=== PATIENT | female | born 1960 | race Caucasian/White ===

== ENCOUNTER 2020-10-14 02:22 | Emergency (ER) | payer OTHER, SELFPAY ==
[2020-10-14 02:28] VITALS: BP 118/78; BP 127/62; PULSE 73; PULSE 75; RESP 20; TEMP 37.1; O2SAT 96; O2SAT 97; BMI 48.5
--- NOTE | 2020-10-14 02:42 | XR_ITS ---
EXAMINATION: XR CHEST CLINICAL INFORMATION: Chest pain COMPARISON: 10/08/2015 TECHNIQUE: Frontal view of the chest was obtained. FINDINGS: The lungs are clear with no focal consolidation. No evidence of pneumothorax, pulmonary edema, or pleural effusions. The cardiomediastinal silhouette is unremarkable. No acute osseous findings. XR/XR chest 1V IMPRESSION: No acute cardiopulmonary findings.
--- NOTE | 2020-10-14 02:43 | ECG_ITS ---
Test Reason : CHEST PAIN Blood Pressure : / mmHG Vent. Rate : 067 BPM Atrial Rate : 067 BPM P-R Int : 200 ms QRS Dur : 088 ms QT Int : 408 ms P-R-T Axes : 074 019 048 degrees QTc Int : 431 ms Normal sinus rhythm Normal ECG When compared with ECG of 14-OCT-2020 02:31, Nonspecific ST abnormality has improved Referred By: Ivonne Lino Electronically Signed By:VERITO KEENE MD
--- NOTE | 2020-10-14 03:31 | ED.CHESTPAIN ---
HPI - Chest Pain General Chief Complaint: Chest Pain Stated Complaint: CHEST PAIN Time Seen by Provider: 10/14/20 02:42 Source: patient Mode of arrival: EMS History of Present Illness HPI narrative: This is a 60-year-old female who presents via EMS for onset of substernal chest pain, non-radiating that started up shortly after 1:00 a.m. this morning and was associated with lightheadedness as well as nausea but denies any shortness of breath, headache, diaphoresis. She states the pain lasted approximately 10 minutes and was not exacerbated by deep inspiration or movement or position change. Patient denies any recent travel, calf swelling/pain, recent smoking history, dyspnea on exertion, orthopnea, or increased bilateral lower leg edema. Patient is completely asymptomatic at this time. Related Data Home Medications Medication Instructions Recorded Confirmed alprazolam 1 tab PO DAILY PRN 10/14/20 10/14/20 dulaglutide [Trulicity] 0.75 mg SUBCUT DAILY 10/14/20 10/14/20 glipizide 1 tab PO DAILY 10/14/20 10/14/20 insulin degludec [Tresiba 100 unit SUBCUT DAILY 10/14/20 10/14/20 FlexTouch U-100] metformin 500 mg PO DAILY 10/14/20 10/14/20 oxybutynin chloride 1 tab PO DAILY 10/14/20 10/14/20 potassium chloride 10 meq PO DAILY 10/14/20 10/14/20 sacubitril-valsartan [Entresto] 1 tab PO BID 10/14/20 10/14/20 Allergies Allergy/AdvReac Type Severity Reaction Status Date / Time No Known Allergies Allergy Verified 10/14/20 02:33 [No Known Allergies*] Review of Systems Review of Systems: Pertinent positives and negatives as stated in HPI and 10 point review of systems is otherwise negative. [facility] Past Medical History Source: nursing notes reviewed Medical History CHF (congestive heart failure) Diabetes Hypothyroid Social History Social History Smoking Status: Former smoker Use of substances other than those prescribed or required for medical reasons: No Advance Directives: No Advance Directives Information Provided: No Physical Exam Vital Signs: Vital Signs: Last Vital Signs Temp 98.7 F 10/14/20 02:28 Pulse 75 10/14/20 03:41 Resp 15 10/14/20 03:41 BP 127/67 10/14/20 03:41 Pulse Ox 95 10/14/20 03:41 Body Mass Index 48.5 VITAL SIGNS: Reviewed. GENERAL: Well developed, well nourished, in no acute distress. HEAD: Normocephalic/atraumatic, EYES: PERRLA, EOMI EARS: Ext canals without abnormality NOSE: Nares patent bilateral OROPHARYNX: no oral lesions noted, posterior pharynx clear NECK: Supple, no adenopathy LUNGS: Normal breath sounds. No adventitious sounds or accessory muscle use. SpO2<95> CARDIOVASCULAR: Regular rate and rhythm without noted murmurs, no JVD or lower extremity edema. ABDOMEN: Obese, Soft, non-tender, non-distended with bowel sounds. MUSCULOSKELETAL: No tenderness, deformities, or effusions noted on gross inspection. EXTREMITIES: No cyanosis, clubbing or edema. SKIN: Inspection of the skin reveals no rashes NEUROLOGIC: Alert and oriented x 4. Strength and sensation to light touch were grossly intact x 4. Course Course Course Narrative: This is a 60-year-old female with history and clinical presentation suggestive of possible GERD/costochondritis, but will rule out cardiopulmonary etiologies or less likely pancreatitis. All results reviewed and there are no acute findings, however troponin is mildly elevated at 7.6 without noted ischemic changes on EKG. Will trend with 2nd troponin. Signed out to Dr Denny: f/u 2nd Troponin and likely discharge MDM - Chest Pain Lab Data Result diagrams: 10/14/20 03:55 10/14/20 05:07 Labs: Lab Results 10/14/20 10/14/20 10/14/20 Range/Units 03:55 03:55 05:07 WBC 9.4 (4.8-10.8) X10*3/uL RBC 4.52 (4.20-5.50) X10*6/uL Hgb 11.9 L (12.0-16.0) g/dl Hct 38.1 (37-47) % MCV 84.3 (80-98) fL MCH 26.3 L (27.0-33.0) pg MCHC 31.2 (31.0-35.0) g/dl RDW 14.0 (11.0-16.0) % Plt Count 149 L (160-400) X10*3/uL MPV 9.4 (9.4-12.3) fL Immature Gran % (Auto) 0.2 (0.0-0.4) % Neut % (Auto) 73.0 (45-73) % Lymph % (Auto) 19.3 L (20-40) % [place] % (Auto) 6.3 (2-11) % Eos % (Auto) 0.9 (0-4) % Baso % (Auto) 0.3 (0-2) % Lymph # (Auto) 1.8 (1.2-4.9) X10*3/uL [place] # (Auto) 0.6 (0.1-1.2) X10*3/uL Eos # (Auto) 0.1 (0.0-0.4) X10*3/uL Baso # (Auto) 0.0 (0.0-0.2) X10*3/uL Abs Immat Gran (auto) 0.02 (0.00-0.03) X10*3/uL Absolute Neuts (auto) 6.9 (2.0-8.3) X10*3/uL Absolute Nucleated RBC 0.000 (0.0-0.012) X10*3/uL Nucleated RBC % (auto) 0.0 (0.0-0.2) /100WBC Sodium 140 (135-145) mmol/L Potassium 4.7 (3.3-5.1) mmol/L Chloride 104 (96-108) mmol/L Carbon Dioxide 26 (22-29) mmol/L Anion Gap 15 (12-20) BUN 24 H (9-16) mg/dL Creatinine 0.81 (0.5-1.4) mg/dL Estim Creat Clear Calc 105.9 Estimated GFR > 60 Random Glucose 97 (60-115) mg/dL Calcium 8.9 (8.4-10.2) mg/dL Total Bilirubin 0.2 (0.0-1.0) mg/dL AST 18 (5-31) U/L ALT 14 (0-31) U/L Alkaline Phosphatase 80 (39-117) U/L Troponin I High Sens 7.6 (<3.5-17.0) ng/L Total Protein 6.9 (6.5-8.0) g/dL Albumin 4.1 (3.5-5.0) g/dL ECG Data ECG #1: Attestation: I personally reviewed and interpreted this ECG as follows: Prior ECG tracings: available for review (10/09/2015 no acute changes on comparison) Interpretation: Normal sinus rhythm, HR-67, no evidence of acute ischemia, MD/QRS/QTC are within normal limits. Discharge Plan Discharge Clinical Impression: Atypical chest pain Patient Disposition: Home, Self-Care Instructions: Chest Pain (ED), Chest Wall Pain (ED) Additional Instructions: 1. Resume all home medications as prescribed. 2. Recommend following up with primary care provider for re-evaluation and outpatient management, or further investigations as indicated. Please do not hesitate to return to the emergency department should you develop any acute worsening of your symptoms. Prescriptions: No Action metformin 500 mg tablet 500 mg PO DAILY RF: 0 oxybutynin chloride 15 mg tablet extended release 24hr 1 tab PO DAILY RF: 0 potassium chloride 10 mEq tablet extended release 10 meq PO DAILY RF: 0 alprazolam 0.25 mg tablet 1 tab PO DAILY PRN (Reason: Sleep) RF: 0 glipizide 5 mg tablet 1 tab PO DAILY RF: 0 Tresiba FlexTouch U-100 100 unit/mL (3 mL) insulin pen 100 unit subcut DAILY RF: 0 Trulicity 0.75 mg/0.5 mL pen injector 0.75 mg subcut DAILY RF: 0 Entresto 49-51 mg tablet 1 tab PO BID RF: 0 Referrals: Corrie Winston MD [Primary Care Provider] - 2 days (Re-evaluation and outpatient management of atypical chest pain with negative cardiac workup.)
[2020-10-14 03:41] VITALS: BP 127/67; PULSE 75; RESP 15; O2SAT 95
[2020-10-14 03:59] LABS: MANUAL DIFF FLAG NO
[2020-10-14 04:00] LABS: Basophils Percent Auto 0.3 % (0-2); Eosinophils Absolute Auto 0.1 X10*3/uL (0.0-0.4); Eosinophils Percent Auto 0.9 % (0-4); Hematocrit 38.1 % (37-47); Hemoglobin 11.9 g/dl (12.0-16.0); Imm Gran Abs Auto 0.02 X10*3/uL (0.00-0.03); Imm Gran Pct Auto 0.2 % (0.0-0.4); Lymphocytes Absolute Auto 1.8 X10*3/uL (1.2-4.9); Lymphocytes Percent Auto 19.3 % (20-40); Mean Corpuscular HGB Conc 31.2 g/dl (31.0-35.0); Mean Corpuscular Hemoglobin 26.3 pg (27.0-33.0); Mean Corpuscular Volume 84.3 fL (80-98); Mean Platelet Volume 9.4 fL (9.4-12.3); Monocytes Absolute Auto 0.6 X10*3/uL (0.1-1.2); Monocytes Percent Auto 6.3 % (2-11); Neutrophils Absolute Auto 6.9 X10*3/uL (2.0-8.3); Platelet Count 149 X10*3/uL (160-400); Red Blood Count 4.52 X10*6/uL (4.20-5.50); White Blood Count 9.4 X10*3/uL (4.8-10.8)
[2020-10-14 04:33] LABS: Troponin-I High Sensitivity 7.6 ng/L (<3.5-17.0)
[2020-10-14 06:06] LABS: Alanine Aminotransferase 14 U/L (0-31); Albumin Level 4.1 g/dL (3.5-5.0); Alkaline Phosphatase 80 U/L (39-117); Anion Gap 15 (12-20); Aspartate Amino Transferase 18 U/L (5-31); Bilirubin Total 0.2 mg/dL (0.0-1.0); Blood Urea Nitrogen 24 mg/dL (9-16); Calcium 8.9 mg/dL (8.4-10.2); Carbon Dioxide 26 mmol/L (22-29); Chloride 104 mmol/L (96-108); Creatinine Clr Calc Pharmacy 105.9; Estimated Glomerular Filt Rate > 60; Glucose Random 97 mg/dL (60-115); Potassium 4.7 mmol/L (3.3-5.1); Sodium 140 mmol/L (135-145); Total Protein 6.9 g/dL (6.5-8.0)
[2020-10-14 06:51] VITALS: BP 129/70; PULSE 77; RESP 18; O2SAT 96
[2020-10-14 08:37] LABS: Troponin-I High Sensitivity 5.3 ng/L (<3.5-17.0)
== END 2020-10-14 09:57 | disposition home or self-care (01) ==
PROVIDERS: Emergency Provider Student in an Organized Health Care Education/Training Program; PCP Internal Medicine
DX: R07.89 Other chest pain (principal); E11.9 Type 2 diabetes mellitus without complications; I50.9 Heart failure, unspecified; Z79.4 Long term (current) use of insulin; Z79.899 Other long term (current) drug therapy; Z87.891 Personal history of nicotine dependence
CPT/HCPCS: 36415; 71045; 80053; 84484; 85025; 93005; 99283; 99284

== ENCOUNTER 2021-02-15 22:13 | Emergency (ER) | payer OTHER, SELFPAY ==
--- NOTE | ~2021-02-15 | XR_ITS ---
EXAMINATION: XR KNEE, LEFT CLINICAL INFORMATION: Fall COMPARISON: None TECHNIQUE: Four views of the left knee. FINDINGS: Osseous alignment is anatomic. There is severe joint space narrowing of the lateral compartment and osteophytosis. Mild narrowing of the medial and patellofemoral compartments. No acute fracture is seen. Small effusion is present. There are scattered calcific density in the soft tissues of the lower leg, predominantly medially. XR/XR knee LT 4V IMPRESSION: No acute findings. Chronic appearing/degenerative changes as described above.
[2021-02-15 22:22] VITALS: BP 150/100; PULSE 75; O2SAT 97
[2021-02-15 22:37] VITALS: BP 145/56; PULSE 95; RESP 18; TEMP 37.1; O2SAT 96; BMI 48.5
--- NOTE | 2021-02-16 00:30 | ED.LOWEXIN ---
HPI - Extremity Injury (Lower) General Chief Complaint: Extremity Injury, Lower Stated Complaint: knee pain Time Seen by Provider: 02/16/21 00:19 Source: patient Mode of arrival: wheelchair Limitations: no limitations History of Present Illness HPI Narrative: Patient comes emergency room complaining of left-sided knee pain. Patient states that at home she has a toothless dog that drools quite a bit, which left a puddle of saliva on the ground, patient slipped, landed on her buttocks but her left leg bent backwards, causing it to hurt her left knee. Patient did not hit her head, no LOC, not on bloodthinners. Related Data Home Medications Medication Instructions Recorded Confirmed alprazolam 1 tab PO DAILY PRN 10/14/20 10/14/20 dulaglutide [Trulicity] 0.75 mg SUBCUT DAILY 10/14/20 10/14/20 glipizide 1 tab PO DAILY 10/14/20 10/14/20 insulin degludec [Tresiba 100 unit SUBCUT DAILY 10/14/20 10/14/20 FlexTouch U-100] metformin 500 mg PO DAILY 10/14/20 10/14/20 oxybutynin chloride 1 tab PO DAILY 10/14/20 10/14/20 potassium chloride 10 meq PO DAILY 10/14/20 10/14/20 sacubitril-valsartan [Entresto] 1 tab PO BID 10/14/20 10/14/20 Allergies Allergy/AdvReac Type Severity Reaction Status Date / Time No Known Allergies Allergy Verified 02/15/21 22:37 [No Known Allergies*] Review of Systems Review of Systems: Constitutional : No Weight loss, No Fever, No Chills, No Night Sweats, No Fatigue, No Malaise ENT/Mouth : No Hearing loss, No Ear Pain, No Nasal Congestion, No Sinus Pain, No Hoarseness, No sore throat, No Rhinorrhea, No Swallowing Difficulty Eyes: No Eye Pain, No Swelling, No Redness, No Foreign Body, No Discharge, No Vision Changes Cardiovascular : No Chest Pain, No SOB, No Dyspnea on Exertion, No Orthopnea, No Edema, No Palpitations Respiratory : No Cough, No Sputum, No Wheezing, No Smoke Exposure, No Dyspnea Gastrointestinal : No Nausea, No Vomiting, No Diarrhea, No Constipation, No abdominal Pain, No Hematochezia, No Melena Genitourinary : no irregular bleeding, No Dysuria, No Urinary Frequency, No Hematuria, No Urinary Incontinence, No Urgency, No Flank Pain, No Urinary Flow Changes, No Hesitancy Musculoskeletal : Complaining of severe left knee pain with any movement, mild pain in buttocks, No Myalgias, No Joint Swelling Skin : No Skin Lesions, No rash Neuro : No Weakness, No Numbness, No Paresthesias, No Loss of Consciousness, No Dizziness, No Headache Psych : No Anxiety/Panic, No Depression, No SI/HI/AH/VH, No Social Issues, Heme/Lymph: No Bruising, No Bleeding,No Lymphadenopathy Endocrine : No Polyuria, No Polydipsia, No Temperature Intolerance PENDING SALE TO [facility] Past Medical History Medical History CHF (congestive heart failure) Diabetes Hypothyroid Social History Social History Advance Directives: No Advance Directives Information Provided: No Physical Exam Vital Signs: Vital Signs: Last Vital Signs Temp 98.7 F 02/15/21 22:37 Pulse 95 02/15/21 22:37 Resp 18 02/15/21 22:37 BP 145/56 H 02/15/21 22:37 Pulse Ox 96 02/15/21 22:37 Body Mass Index 48.5 Appearance: Alert. Oriented X3. No acute distress. Eyes: Pupils equal, round and reactive to light. ENT: Pharynx normal. Neck: Normal inspection. Neck supple. No lymph nodes noted. No crepitus CVS: Normal heart rate and rhythm. Pulses normal. Normal S1 and S2 Respiratory: No respiratory distress. Breath sounds normal. No Wheezing. No rales Abdomen: Soft and nontender. No rigidity. No distention. good BS x4 Skin: Skin warm and dry. Normal skin color. Normal skin turgor. Extremities: Bilateral +3 pitting edema, patient unable to move her left leg due to severe knee pain, patient does not seem to have significant deformity, knee is mildly swollen on the left side, tender to touch, not erythematous, seems that she does have a small effusion Neuro: Oriented X 3. No motor deficit. No sensory deficit. Moving all extermities. No slurred speech. Course Course Course Narrative: Patient required for people to assist her to go to the bathroom. Patient has a very difficult time walking even with a walker and with the 2 people assist. Patient will remain in the emergency room, be evaluated by Case Management and Physical therapy in the morning. Physician observation was started at 02:00, blood pressure 145/56, other vitals stable. Patient waiting for case management and PT. Sign-out given to Dr. Lino MDM - Extremity Injury (Lower) Imaging Data Knee x-ray: Radiologist's impression: Osseous alignment is anatomic. There is severe joint space narrowing of the lateral compartment and osteophytosis. Mild narrowing of the medial and patellofemoral compartments. No acute fracture is seen. Small effusion is present. There are scattered calcific density in the soft tissues of the lower leg, predominantly medially. XR/XR knee LT 4V IMPRESSION: No acute findings. Chronic appearing/degenerative changes as described above. Discharge Plan Discharge Prescriptions: No Action metformin 500 mg tablet 500 mg PO DAILY RF: 0 oxybutynin chloride 15 mg tablet extended release 24hr 1 tab PO DAILY RF: 0 potassium chloride 10 mEq tablet extended release 10 meq PO DAILY RF: 0 alprazolam 0.25 mg tablet 1 tab PO DAILY PRN (Reason: Sleep) RF: 0 glipizide 5 mg tablet 1 tab PO DAILY RF: 0 Tresiba FlexTouch U-100 100 unit/mL (3 mL) insulin pen 100 unit subcut DAILY RF: 0 Trulicity 0.75 mg/0.5 mL pen injector 0.75 mg subcut DAILY RF: 0 Entresto 49-51 mg tablet 1 tab PO BID RF: 0
[2021-02-16] MEDS: traMADoL HCL 50 MG TABLET PO ×2 (00:49→09:33)
[2021-02-16 02:00] VITALS: BP 148/83; PULSE 85; RESP 18; TEMP 36.8; O2SAT 97
[2021-02-16 06:45] LABS: COVID-19 Test Negative (Negative); IDNOW Serial# 9DD0AD1C
[2021-02-16 06:59] VITALS: RESP 16
[2021-02-16 07:27] VITALS: BP 148/83; PULSE 85; O2SAT 97
[2021-02-16 10:00] VITALS: RESP 18
--- NOTE | 2021-02-16 10:51 | PC.NURSE ---
pt up to comode with minimal assistance
--- NOTE | 2021-02-16 11:20 | MHC.CM.ED ---
Received case management consult overnight from Dr Horton. Patient came to the ER due to knee pain. Found to have knee effusion. Physical therapy eval completed. Acute rehab is recommended. OT eval will be needed and has been ordered by Cheikh HENNING. Met with patient in regards to discharge planning. Patient lives with her , daughter and son in law, ambulates independently and had no services prior to coming to the ER. PCP verified. Patient denies having a HCP. Information provided. Patient not interested in completing one at this time. Acute rehab choices provided. Patient requesting referral to [facility]. Referral made via [employer]. [facility] is waiting for OT eval prior to obtaining insurance auth. Continue to monitor for d/c needs.
--- NOTE | 2021-02-16 13:18 | MHC.CM.ED ---
OT eval completed. Sent to [facility]. [facility] is in the process of obtaining insurance auth. Continue to monitor for d/c needs.
--- NOTE | 2021-02-16 13:40 | MHC.CM.ED ---
Received telephone call from Teresita at [facility]. Teresita is requesting additional clinical information. Additional clinical information provided via fax. Continue to monitor for d/c needs.
== END 2021-02-16 18:52 | disposition other institution (70) ==
PROVIDERS: Emergency Provider Emergency Medicine; PCP Internal Medicine
DX: M25.462 Effusion, left knee (principal); M17.12 Unilateral primary osteoarthritis, left knee; M25.562 Pain in left knee; I50.9 Heart failure, unspecified; E11.9 Type 2 diabetes mellitus without complications; Z79.4 Long term (current) use of insulin; Z79.899 Other long term (current) drug therapy
CPT/HCPCS: 36415; 73564; 87635; 97162; 97166; 99284; 99285

== ENCOUNTER 2022-02-20 12:14 | Outpatient (REF) | payer OTHER, SELFPAY ==
--- NOTE | ~2022-02-20 | XR_ITS ---
EXAMINATION: 1. RADIOGRAPHS RIGHT HAND 2. RADIOGRAPHS LEFT HAND CLINICAL INFORMATION: Bilateral hand pain. History of arthritis. COMPARISON: None TECHNIQUE: 3 views of each hand were obtained. FINDINGS: Right hand: Visualized portion of the distal radius and ulna demonstrate no fracture. Carpal rows are well aligned. No carpal, metacarpal or phalangeal fracture. Mild degenerative changes of scattered IP joints. No focal soft tissue swelling. No gross erosive changes. No radiopaque foreign body. Left hand: Visualized portion of the distal radius and ulna demonstrate no fracture. Carpal rows are maintained. No carpal bone fracture. No metacarpal or phalangeal fracture. Small enthesophyte off the lateral aspect of the distal fifth metacarpal. There are mild degenerative changes of the first MCP and scattered IP joints. No gross erosive changes. No focal soft tissue swelling. No radiopaque foreign body. XR/XR hand RT min 3V IMPRESSION: Mild degenerative changes of both hands without fracture.
--- NOTE | ~2022-02-20 | XR_ITS ---
EXAMINATION: 1. RADIOGRAPHS RIGHT HAND 2. RADIOGRAPHS LEFT HAND CLINICAL INFORMATION: Bilateral hand pain. History of arthritis. COMPARISON: None TECHNIQUE: 3 views of each hand were obtained. FINDINGS: Right hand: Visualized portion of the distal radius and ulna demonstrate no fracture. Carpal rows are well aligned. No carpal, metacarpal or phalangeal fracture. Mild degenerative changes of scattered IP joints. No focal soft tissue swelling. No gross erosive changes. No radiopaque foreign body. Left hand: Visualized portion of the distal radius and ulna demonstrate no fracture. Carpal rows are maintained. No carpal bone fracture. No metacarpal or phalangeal fracture. Small enthesophyte off the lateral aspect of the distal fifth metacarpal. There are mild degenerative changes of the first MCP and scattered IP joints. No gross erosive changes. No focal soft tissue swelling. No radiopaque foreign body. XR/XR hand LT min 3V IMPRESSION: Mild degenerative changes of both hands without fracture.
[2022-02-20 12:41] LABS: MANUAL DIFF FLAG NO
[2022-02-20 13:17] LABS: Basophils Percent Auto 0.5 % (0-2); Eosinophils Absolute Auto 0.1 X10*3/uL (0.0-0.4); Eosinophils Percent Auto 1.9 % (0-4); Hematocrit 35.6 % (37.0-47.0); Imm Gran Abs Auto 0.03 X10*3/uL (0.00-0.03); Imm Gran Pct Auto 0.5 % (0.0-0.4); Lymphocytes Absolute Auto 1.6 X10*3/uL (1.2-4.9); Lymphocytes Percent Auto 28.4 % (20-40); Mean Corpuscular HGB Conc 30.9 g/dl (31.0-35.0); Mean Corpuscular Volume 84.2 fL (80.0-98.0); Mean Platelet Volume 10.5 fL (9.4-12.3); Monocytes Absolute Auto 0.4 X10*3/uL (0.1-1.2); Monocytes Percent Auto 7.2 % (2-11); Neutrophils Absolute Auto 3.5 x10*3/uL (2.0-8.3); Neutrophils Percent Auto 61.5 % (45-73); Platelet Count 167 X10*3/uL (160-400); Red Blood Count 4.23 X10*6/uL (4.20-5.50); Red Cell Distribution Width 14.4 % (11.0-16.0); White Blood Count 5.7 X10*3/uL (4.8-10.8)
[2022-02-20 13:18] LABS: Alanine Aminotransferase 20 U/L (0-31); Aspartate Amino Transferase 19 U/L (5-31); C Reactive Protein 0.85 mg/dL (< or = 0.50); Estimated Glomerular Filt Rate > 60; Rheumatoid Factor < 15.0 IU/mL (<15.0)
[2022-02-20 14:15] LABS: Erythrocyte Sedimentation Rate 38 MM/HR (0-20)
[2022-02-25 14:26] LABS: Cyclic Citrullinated Peptide <16 UNITS
== END 2022-02-20 12:15 | disposition home or self-care (01) ==
LOC: HO.XRAY 12:14
PROVIDERS: PCP Internal Medicine; Visit Provider Internal Medicine Rheumatology
DX: M19.90 Unspecified osteoarthritis, unspecified site (principal); M17.0 Bilateral primary osteoarthritis of knee; Z79.899 Other long term (current) drug therapy; Z87.39 Personal history of other diseases of the musculoskeletal system and connective tissue
CPT/HCPCS: 36415; 73130; 82565; 84450; 84460; 85025; 85652; 86140; 86200; 86431; 99202

== ENCOUNTER → 2022-07-22 14:29 | Outpatient (BNVA) | payer OTHER, SELFPAY | PROVIDERS: PCP Internal Medicine; Referring Provider Internal Medicine; Visit Provider Internal Medicine Rheumatology | DX: M19.90 Unspecified osteoarthritis, unspecified site (principal); M17.0 Bilateral primary osteoarthritis of knee; Z79.899 Other long term (current) drug therapy | CPT/HCPCS: 99212 ==

== ENCOUNTER 2022-07-23 12:32 | Outpatient (REF) | payer OTHER, SELFPAY ==
[2022-07-23 13:51] LABS: MANUAL DIFF FLAG NO
[2022-07-23 13:58] LABS: Basophils Percent Auto 0.6 % (0-2); Eosinophils Absolute Auto 0.1 X10*3/uL (0.0-0.4); Hematocrit 35.2 % (37.0-47.0); Hemoglobin 11.3 g/dl (12.0-16.0); Imm Gran Abs Auto 0.02 X10*3/uL (0.00-0.03); Imm Gran Pct Auto 0.3 % (0.0-0.4); Lymphocytes Absolute Auto 1.7 X10*3/uL (1.2-4.9); Lymphocytes Percent Auto 26.9 % (20-40); Mean Corpuscular HGB Conc 32.1 g/dl (31.0-35.0); Mean Corpuscular Hemoglobin 26.6 pg (27.0-33.0); Mean Corpuscular Volume 82.8 fL (80.0-98.0); Mean Platelet Volume 10.8 fL (9.4-12.3); Monocytes Absolute Auto 0.4 X10*3/uL (0.1-1.2); Monocytes Percent Auto 6.8 % (2-11); Neutrophils Absolute Auto 4.1 x10*3/uL (2.0-8.3); Neutrophils Percent Auto 63.4 % (45-73); Platelet Count 166 X10*3/uL (160-400); Red Blood Count 4.25 X10*6/uL (4.20-5.50); Red Cell Distribution Width 14.5 % (11.0-16.0); White Blood Count 6.5 X10*3/uL (4.8-10.8)
[2022-07-23 14:20] LABS: Alanine Aminotransferase 14 U/L (0-31); Albumin Level 4.1 g/dL (3.5-5.0); Alkaline Phosphatase 75 U/L (39-117); Anion Gap 16 (12-20); Aspartate Amino Transferase 18 U/L (5-31); Bilirubin Total 0.3 mg/dL (0.0-1.0); Blood Urea Nitrogen 20 mg/dL (9-16); C Reactive Protein 1.15 mg/dL (< or = 0.50); Calcium 9.2 mg/dL (8.4-10.2); Carbon Dioxide 23 mmol/L (22-29); Chloride 103 mmol/L (96-108); Estimated Glomerular Filt Rate > 60; Glucose Random 271 mg/dL (60-115); Potassium 4.9 mmol/L (3.3-5.1); Sodium 137 mmol/L (135-145); Total Protein 6.8 g/dL (6.5-8.0)
[2022-07-23 14:49] LABS: Erythrocyte Sedimentation Rate 34 MM/HR (0-20)
== END 2022-07-23 12:33 | disposition home or self-care (01) ==
LOC: HO.10HDL 12:32
PROVIDERS: Visit Provider Internal Medicine Rheumatology
DX: M19.90 Unspecified osteoarthritis, unspecified site (principal); Z79.899 Other long term (current) drug therapy
CPT/HCPCS: 36415; 80053; 85025; 85652; 86140

== ENCOUNTER → 2023-01-20 13:27 | Outpatient (BNVA) | payer OTHER, SELFPAY | PROVIDERS: PCP Internal Medicine; Visit Provider Internal Medicine Rheumatology | DX: M19.90 Unspecified osteoarthritis, unspecified site (principal); Z79.899 Other long term (current) drug therapy | CPT/HCPCS: 99212 ==

== ENCOUNTER 2023-07-21 09:55 | Outpatient (AMB) | payer OTHER, SELFPAY ==
[2023-07-21 10:03] VITALS: BP 128/70; PULSE 78; TEMP 36.2; O2SAT 99; BMI 49.5
--- NOTE | 2023-07-21 10:03 | A.OFFVIS_ITS ---
Intake Vital Signs 07/21/23 10:03 Height 5 ft 7 in Weight 315 lb 14.758 oz BMI 49.5 BP 128/70 Blood Pressure Location Lt radial Position Sitting Pulse 78 Pulse Source Pulse Oximeter Temp 97.2 F Temp Source Skin Pulse Oximetry (%) 99 Oxygen Delivery Method Room Air Intake Visit Reasons: RA Intake Note: Patient presents today to follow up on RA. Would like to refill ibuprofen today. Child And Family Services Specialist Required: No Accompanied by: Self / Same As Patient Allergies lantus Allergy (Intermediate, Uncoded 07/21/23 10:06) Fluctuating blood sugars HPI HPI Comments History of Present Illness Details The patient returns for evaluation of her rheumatoid arthritis and osteoarthritis. She is down to 500 mg twice a day with the sulfasalazine. In general peripheral joints are doing okay. She does have knee pains at night that previously were helped by taking 800 mg of ibuprofen in the evening. Apparently her PCP team decided that was not advisable and it was stopped. She tried acetaminophen at 1000 mg and that did not seem to help as well so she is back on the [id number]-kvfubbj ibuprofen taking 600 mg at night. Looking through her chart she does have some micro albuminuria attributed to her diabetic kidney disease so I think that is the major reason for advising her to stop the ibuprofen. She feels pretty strongly that she needs something at night to enable her to sleep without knee pain. She does get knee pain during the day but it seems to be more tolerable. There is no knee swelling. She remains on the carvedilol and Entresto on a daily basis for her CHF, occasionally supplemented with furosemide. [facility] Medical History (Updated 02/10/23 @ 12:25 by Jewel Painting MD) History of slipped capital femoral epiphysis MCC use of drug Inflammatory arthritis Osteoarthritis of knees, bilateral Hypothyroid Diabetes CHF (congestive heart failure) Surgical History History of placement of ear tubes H/O wisdom tooth extraction History of tonsillectomy History of hip surgery H/O left knee surgery Family History Unknown No problems noted. Social History Household Members: Significant Other and Family Housing: House Are you a primary wound care center consultant to a significant other at home: No Do you presently have visiting nurse or other home services: No Alcohol intake: never Patient Tobacco Use Status: Never used Tobacco e-Cigarette/Vaping Use: Never Used service: No Current occupational status: retired Review of Systems Const Details: Negative for appetite change, weight change, fever, chills, malaise and fatigue Eyes Details: Negative for vision change, dry eyes,headaches and dizziness ENT Details: Negative for hearing change, tinnitus, oral ulcer, nose bleeds and oral dryness. Card Details: Negative chest pain, edema and syncope Resp Details: Negative for SOB, cough and wheezing GI Details: Negative indigestion/heartburn, nausea, abdominal pain, bowel changes, diarrhea, constipation and bloody stool. Endo Details: Negative for polyuria and polydypsia Petros/Lymph Details: Negative for excessive bruising or bleeding. Physical Exam Vital Signs: Last Vital Signs Temp 97.2 F 07/21/23 10:03 Pulse 78 07/21/23 10:03 BP 128/70 07/21/23 10:03 Pulse Ox 99 07/21/23 10:03 Oxygen Delivery Method Room Air 07/21/23 10:03 BMI result Body Mass Index 49.5 APPEARANCE: Patient in no acute distress EXTREMITIES: No edema, no calf tenderness, normal peripheral pulses. JOINT EXAM:?? JOINT EXAM:?? Cervical Spine:.? Full range of motion without pain; no tenderness. Thoracic Spine:.? No scoliosis.? No tenderness on palpation. Lumbar Spine:.? Alignment normal.? Mild discomfort with flexion at 60 degrees.? No tenderness.? She stands at rest with most of her weight on the right leg.? The left leg seems shorter. Chest Wall:.? No tenderness, swelling, increased warmth or erythema. Hands:? Right:? No swelling or tenderness in the MCP joints is appreciated. There is slight bony enlargement at the thumb IP and 2nd 3rd PIP joints and the 2nd 3rd DIP joints without tenderness.? There is no flexor tendon triggering, thenar atrophy or sensory loss.? Left:? There is mild bony enlargement with minimal tenderness at the thumb IP and the other PIPs.? There is nontender bony enlargement at the 2nd DIP.? There is no flexor tendon triggering or tenderness.? No thenar atrophy or sensory loss. Wrists:.? Right:? Slight discomfort with flexion at 60 degrees or extension at 45 degrees were motion is limited.? No soft tissue swelling, redness or warmth.? No tenderness.? Left:? Slight discomfort with flexion or extension at 60 degrees, slight tenderness but no swelling. Elbows:? Left:? She lacks about 25-30 degrees of full extension.? She flexes normally.? There may be some thickening over the joint space but no tenderness.? No redness or warmth.? She says she had an old fracture of the left elbow in the past.? Right:? Normal pain-free range of motion without tenderness, swelling, increased warmth or erythema. Shoulders:.?? Right: Mild discomfort with abduction 150 degrees.? Passive abduction is limited at 160 degrees.? There is some slight anterior tenderness without swelling, abductor weakness or adenopathy.? Left:? Mild pain with abduction at 90 degrees.? Abduction is limited to 120 degrees and external rotation is limited at 20 degrees.? Internal rotation is slightly uncomfortable at the extremes.? No abductor weakness or adenopathy.? Mild anterior, subacromial and posterior tenderness.? No swelling but there may be some abductor weakness. Hips:? Left:? Mild discomfort with flexion at 90 degrees or external rotation at 15 degrees.? Internal rotation is limited at 5 degrees with slight discomfort.? The discomfort is felt in the groin and buttock region.? Right:? ? Full range of motion without pain. Hip bursa:.? Mild bilateral trochanteric tenderness. Knees:.? Right:? Mild valgus deformity, mild patellofemoral crepitus and slight medial compartment tenderness without effusion, redness or warmth.? Left:? There is more marked valgus deformity and mild to moderate patellofemoral crepitus.? There is [id number] medial and slight lateral tenderness.? No effusion, redness or warmth. Ankles:.? Normal pain-free range of motion without tenderness, swelling, increased warmth or erythema. Feet:.? Right:? Slight 1st MTP bony enlargement without tenderness.? There is hammertoe deformities in the 2nd and 3rd toes.? No areas of soft tissue swelling.? Left:? Normal pain-free range of motion with 4th and 5th hammertoes.? Those areas are not tender.? Elsewhere there is no tenderness, swelling, increased warmth or erythema. Tender points:? Mild tenderness to digital palpation at the trapezius, lateral epicondyle, knees bilaterally. Results Reviewed Results Reviewed: The lab work from [place]: March 2022: Urine microalbumin/creatinine ratio 76.6 06/26/2023: Creatinine 0.86, BUN [address] [address] XRay Report Signed Patient: Deja Lucero MR#: [id number] : 1960 Acct:[id number] Age/Sex: 60 / F ADM Date: 02/15/21 Ordering Physician: FRANCES WHITE MD Date of Service: 02/15/21 Procedure(s): XR knee LT 4V Accession Number(s): [id number] cc: FRANCES WHITE MD~ EXAMINATION: XR KNEE, LEFT CLINICAL INFORMATION: Fall COMPARISON: None TECHNIQUE: Four views of the left knee. FINDINGS: Osseous alignment is anatomic. There is severe joint space narrowing of the lateral compartment and osteophytosis. Mild narrowing of the medial and patellofemoral compartments. No acute fracture is seen. Small effusion is present. There are scattered calcific density in the soft tissues of the lower leg, predominantly medially. XR/XR knee LT 4V IMPRESSION: No acute findings. Chronic appearing/degenerative changes as described above. Dictated By: SADIQ COSTA MD signed By: <Electronically signed by SADIQ COSTA MD in OV> Assessment & Plan Assessment & Plan (1) Anemia: Code(s): D64.9 - Anemia, unspecified (2) Osteoarthritis of knees, bilateral: Code(s): M17.0 - Bilateral primary osteoarthritis of knee (3) MCC use of drug: Code(s): Z79.899 - Other usp (current) drug therapy (4) Inflammatory arthritis: Comment: Onset around 2015. RF, CCP negative sulfasalazine since 2016 Code(s): M19.90 - Unspecified osteoarthritis, unspecified site Plan Rheumatoid arthritis with I think fairly good control of synovitis with current treatment. She has osteoarthritis in the knees, particularly the left knee and that seems to be more symptomatic for her at night. Unfortunately with the micro albuminuria it would be best if she did not take any NSAIDs at all. I reviewed this recommendation with her. I suggested she take one of the 500 mg extra-strength Tylenol with a 650 mg Tylenol Arthritis in the evening. Hopefully that will give her enough pain relief that she could be reasonably comfortable at night. Alternatively we may need to add a more sedating medication for sleep. We will check the Chem panel today and repeat her acute phase reactants. She runs a mild anemia so we will check her B12 level. Follow-up at 4-5 months is reasonable. Orders: Orders Vitamin B12 Today D64.9 - Anemia, unspecified, M19.90 - Unspecified osteoarthritis, unspecified site Erythrocyte Sedimentation Rate Today D64.9 - Anemia, unspecified, M19.90 - Unspe cified osteoarthritis, unspecified site Complete Blood Count Auto Diff Today D64.9 - Anemia, unspecified, M19.90 - Unspecified osteoarthritis, unspecified site C Reactive Protein Today D64.9 - Anemia, unspecified, M19.90 - Unspecified osteoarthritis, unspecified site Comprehensive Met. Panel Today D64.9 - Anemia, unspecified, M19.90 - Unspecified osteoarthritis, unspecified site Coding Level of Care Code Est Pt Level 3 (83085) Diagnoses Anemia D64.9 Osteoarthritis of knees, bilateral M17.0 long term care administrator use of drug Z79.899 Inflammatory arthritis M19.90
== END 2023-07-21 11:04 | disposition home or self-care (01) ==
PROVIDERS: PCP Internal Medicine; Visit Provider Internal Medicine Rheumatology
DX: D64.9 Anemia, unspecified (principal); M17.0 Bilateral primary osteoarthritis of knee; Z79.899 Other long term (current) drug therapy; M19.90 Unspecified osteoarthritis, unspecified site
CPT/HCPCS: 99213

== ENCOUNTER → 2023-07-21 09:55 | Outpatient (BNVA) | payer OTHER, SELFPAY | PROVIDERS: PCP Internal Medicine; Visit Provider Internal Medicine Rheumatology | DX: M17.0 Bilateral primary osteoarthritis of knee (principal); M65.9 Synovitis and tenosynovitis, unspecified; D64.9 Anemia, unspecified; Z79.899 Other long term (current) drug therapy | CPT/HCPCS: 99212 ==

== ENCOUNTER 2023-07-21 11:10 | Outpatient (REF) | payer OTHER, SELFPAY ==
[2023-07-21 13:07] LABS: MANUAL DIFF FLAG NO
[2023-07-21 13:26] LABS: Basophils Percent Auto 0.5 % (0-2); Eosinophils Absolute Auto 0.1 X10*3/uL (0.0-0.4); Eosinophils Percent Auto 1.9 % (0-4); Hematocrit 38.6 % (37.0-47.0); Hemoglobin 11.8 g/dl (12.0-16.0); Imm Gran Abs Auto 0.03 X10*3/uL (0.00-0.03); Imm Gran Pct Auto 0.4 % (0.0-0.4); Lymphocytes Absolute Auto 1.5 X10*3/uL (1.2-4.9); Lymphocytes Percent Auto 20.7 % (20-40); Mean Corpuscular HGB Conc 30.6 g/dl (31.0-35.0); Mean Corpuscular Hemoglobin 25.4 pg (27.0-33.0); Mean Corpuscular Volume 83.2 fL (80.0-98.0); Mean Platelet Volume 10.1 fL (9.4-12.3); Monocytes Absolute Auto 0.5 X10*3/uL (0.1-1.2); Monocytes Percent Auto 6.5 % (2-11); Neutrophils Absolute Auto 5.2 x10*3/uL (2.0-8.3); Platelet Count 166 X10*3/uL (160-400); Red Blood Count 4.64 X10*6/uL (4.20-5.50); Red Cell Distribution Width 14.9 % (11.0-16.0); White Blood Count 7.4 X10*3/uL (4.8-10.8)
[2023-07-21 13:37] LABS: Alanine Aminotransferase 10 U/L (0-31); Albumin Level 4.1 g/dL (3.5-5.0); Alkaline Phosphatase 79 U/L (39-117); Anion Gap 13 (12-20); Aspartate Amino Transferase 17 U/L (5-31); Bilirubin Total 0.3 mg/dL (0.0-1.0); Blood Urea Nitrogen 20 mg/dL (9-16); Calcium 9.5 mg/dL (8.4-10.2); Carbon Dioxide 24 mmol/L (22-29); Chloride 109 mmol/L (96-108); Estimated Glomerular Filt Rate > 60; Glucose Random 130 mg/dL (60-115); Potassium 5.1 mmol/L (3.3-5.1); Sodium 141 mmol/L (135-145); Total Protein 7.5 g/dL (6.5-8.0)
[2023-07-21 14:10] LABS: Vitamin B12 429 pg/mL (200-900)
[2023-07-21 14:24] LABS: Erythrocyte Sedimentation Rate 43 MM/HR (0-20)
== END 2023-07-21 11:11 | disposition home or self-care (01) ==
LOC: HO.10HDL 11:10
PROVIDERS: Visit Provider Internal Medicine Rheumatology
DX: M19.90 Unspecified osteoarthritis, unspecified site (principal); D64.9 Anemia, unspecified
CPT/HCPCS: 36415; 80053; 82607; 85025; 85652; 86140

== ENCOUNTER 2023-11-19 12:37 | Outpatient (AMB) | payer MEDICARE, SELFPAY ==
--- NOTE | 2023-11-19 12:39 | MHC.OFFVIS ---
Intake Vital Signs 11/19/23 12:46 Height 5 ft 7 in Weight 314 lb 6.067 oz BMI 49.2 BP 112/60 Blood Pressure Location Rt radial Position Sitting Pulse 76 Pulse Source Pulse Oximeter Temp 97 F Temp Source Skin Pulse Oximetry (%) 98 Oxygen Delivery Method Room Air Intake Visit Reasons: RA with electroencephalograph technologist Intake Note: Patient last seen 07/21/[address] Painting, presents today for follow up and test results. Paleology Teacher Required: No Accompanied by: Self / Same As Patient Allergies lantus Allergy (Intermediate, Uncoded 11/19/23 12:39) Fluctuating blood sugars HPI HPI Comments History of Present Illness Details Ms. Short 63-year-old female returns for follow-up of her rheumatoid arthritis and osteoarthritis. She is down to 500 mg twice a day with the sulfasalazine and denies return of symptoms. In general peripheral joints are doing okay. She does have knee pains at night that previously were helped by taking 800 mg of ibuprofen in the evening. Apparently her PCP team decided that was not advisable and it was stopped. She tried acetaminophen at 1000 mg and that did not seem to help as well so she is back on the fgxe-hmz-akxubra ibuprofen taking 600 mg at night. Looking through her chart she does have some micro albuminuria attributed to her diabetic kidney disease so I think that is the major reason for advising her to stop the ibuprofen. She feels pretty strongly that she needs something at night to enable her to sleep without knee pain. She does get knee pain during the day but it seems to be more tolerable. There is no knee swelling. She remains on the carvedilol and Entresto on a daily basis for her CHF, occasionally supplemented with furosemide. She is averse to knee surgery. 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 Social History Household Members: Significant Other and Family Housing: House Are you a primary medical care manager to a significant other at home: No Do you presently have visiting nurse or other home services: No Alcohol intake: never Patient Tobacco Use Status: Never used Tobacco e-Cigarette/Vaping Use: Never Used service: No Current occupational status: retired Review of Systems Const All systems reviewed & are unremarkable except as noted in HPI and below Physical Exam Vital Signs: Last Vital Signs Temp 97 F 11/19/23 12:46 Pulse 76 11/19/23 12:46 BP 112/60 11/19/23 12:46 Pulse Ox 98 11/19/23 12:46 Oxygen Delivery Method Room Air 11/19/23 12:46 BMI result Body Mass Index 49.2 APPEARANCE: Patient in no acute distress HEART:? Regular rhythm, S1-S2 heard, no murmurs, rubs or gallops. LUNG:? Clear to percussion and auscultation EXTREMITIES: No edema, no calf tenderness, normal peripheral pulses. JOINT EXAM:?? Cervical Spine:.? Full range of motion without pain; no tenderness. Thoracic Spine:.? No scoliosis.? No tenderness on palpation. Lumbar Spine:.? Alignment normal.? Mild discomfort with flexion at 60 degrees.? No tenderness.? She stands at rest with most of her weight on the right leg.? The left leg seems shorter. Chest Wall:.? No tenderness, swelling, increased warmth or erythema. Hands:? Right:? No swelling or tenderness in the MCP joints is appreciated. There is slight bony enlargement at the thumb IP and 2nd 3rd PIP joints and the 2nd 3rd DIP joints without tenderness.? There is no flexor tendon triggering, thenar atrophy or sensory loss.? Left:? There is mild bony enlargement with minimal tenderness at the thumb IP and the other PIPs.? There is nontender bony enlargement at the 2nd DIP.? There is no flexor tendon triggering or tenderness.? No thenar atrophy or sensory loss. Wrists:.? Right:? Slight discomfort with flexion at 60 degrees or extension at 45 degrees were motion is limited.? No soft tissue swelling, redness or warmth.? No tenderness.? Left:? Slight discomfort with flexion or extension at 60 degrees, slight tenderness but no swelling. Elbows:? Left:? She lacks about 25-30 degrees of full extension.? She flexes normally.? There may be some thickening over the joint space but no tenderness.? No redness or warmth.? She says she had an old fracture of the left elbow in the past.? Right:? Normal pain-free range of motion without tenderness, swelling, increased warmth or erythema. Shoulders:.?? Right: Mild discomfort with abduction 150 degrees.? Passive abduction is limited at 160 degrees.? There is some slight anterior tenderness without swelling, abductor weakness or adenopathy.? Left:? Mild pain with abduction at 90 degrees.? Abduction is limited to 120 degrees and external rotation is limited at 20 degrees.? Internal rotation is slightly uncomfortable at the extremes.? No abductor weakness or adenopathy.? Mild anterior, subacromial and posterior tenderness.? No swelling but there may be some abductor weakness. Hips:? Left:? Mild discomfort with flexion at 90 degrees or external rotation at 15 degrees.? Internal rotation is limited at 5 degrees with slight discomfort.? The discomfort is felt in the groin and buttock region.? Right:? ? Full range of motion without pain. Hip bursa:.? Mild bilateral trochanteric tenderness. Knees:.? Right:? Mild valgus deformity, mild patellofemoral crepitus and mild to moderate medial compartment tenderness without effusion, redness or warmth.? Left:? There is more marked valgus deformity and mild to moderate patellofemoral crepitus.? There is [id number] medial and mild lateral tenderness.? No effusion, redness or warmth. Ankles:.? Normal pain-free range of motion without tenderness, swelling, increased warmth or erythema. Feet:.? Right:? Slight 1st MTP bony enlargement without tenderness.? There is hammertoe deformities in the 2nd and 3rd toes.? No areas of soft tissue swelling.? Left:? Normal pain-free range of motion with 4th and 5th hammertoes.? Those areas are not tender.? Elsewhere there is no tenderness, swelling, increased warmth or erythema. Tender points:? Mild tenderness to digital palpation at the trapezius, lateral epicondyle, knees bilaterally. Results Reviewed Results Reviewed: The lab work from [place]: March 2022: Urine microalbumin/creatinine ratio 76.6 06/26/2023: Creatinine 0.86, BUN [address] [address] XRay Report Signed Patient: Deja Lucero MR#: [id number] : 1960 Acct:[id number] Age/Sex: 60 / F ADM Date: 02/15/21 Ordering Physician: FRANCES WHITE MD Date of Service: 02/15/21 Procedure(s): XR knee LT 4V Accession Number(s): [id number] cc: FRANCES WHITE MD~ EXAMINATION: XR KNEE, LEFT CLINICAL INFORMATION: Fall COMPARISON: None TECHNIQUE: Four views of the left knee. FINDINGS: Osseous alignment is anatomic. There is severe joint space narrowing of the lateral compartment and osteophytosis. Mild narrowing of the medial and patellofemoral compartments. No acute fracture is seen. Small effusion is present. There are scattered calcific density in the soft tissues of the lower leg, predominantly medially. XR/XR knee LT 4V IMPRESSION: No acute findings. Chronic appearing/degenerative changes as described above. Dictated By: SADIQ COSTA MD signed By: <Electronically signed by SADIQ COSTA MD in OV> Laboratory Tests 07/21/23 11:15 WBC 7.4 RBC 4.64 Hgb 11.8 L Hct 38.6 ESR 43 H C-Reactive Protein 0.70 H Assessment & Plan Assessment & Plan (1) Anemia: Code(s): D64.9 - Anemia, unspecified Qualifiers: Anemia type: unspecified type Qualified Code(s): D64.9 - Anemia, unspecified (2) Osteoarthritis of knees, bilateral: Code(s): M17.0 - Bilateral primary osteoarthritis of knee Qualifiers: Osteoarthritis type: primary Qualified Code(s): M17.0 - Bilateral primary osteoarthritis of knee (3) longterm use of drug: Code(s): Z79.899 - Other intermediate (current) drug therapy (4) Inflammatory arthritis: Comment: Onset around 2015. RF, CCP negative sulfasalazine since 2017 Code(s): M19.90 - Unspecified osteoarthritis, unspecified site (5) Morbid obesity with BMI of 45.0-49.9, adult: Code(s): E66.01 - Morbid (severe) obesity due to excess calories; Z68.42 - Body mass index [BMI] 45.0-49.9, adult (6) Left elbow pain: Code(s): M25.522 - Pain in left elbow (7) Left shoulder pain: Code(s): M25.512 - Pain in left shoulder Qualifiers: Chronicity: chronic Qualified Code(s): M25.512 - Pain in left shoulder; G89.29 - Other chronic pain Plan #Inflammatory/Rheumatoid arthritis with what appears to be fairly good control of synovitis with current sulfasalazine 500 mg b.i.d.. However not sure that this is sufficient for disease management because her inflammatory markers remain consistently elevated and even seem to have increased since the reduced dosage. We will consider to increase sulfasalazine or add leflunomide at next visit. #Knee OA:She has osteoarthritis in the knees, particularly the left knee and that seems to be more symptomatic for her at night. Unfortunately with the micro albuminuria it would be best if she did not take any NSAIDs at all. She has been taking one of the 500 mg extra-strength Tylenol with a 650 mg Tylenol Arthritis in the evening. Patient does understand that her weight is a factor in knee pain. #Left Shoulder/Elbow Pain: The patient has a history of fractured left forearm. She has been experiencing increased pain to her left shoulder and elbow since last visit. I will obtain x-rays to evaluate. #[facility] use: We will check the CBC and Chem panel today and repeat her acute phase reactants. She runs a mild anemia but B12 levels are adequate. Follow-up at 4 months with labs done 1 week before I spent 40 minutes reviewing chart, evaluating patient and documenting Orders: Orders XR shoulder LT min 2V Today M19.90 - Unspecified osteoarthritis, unspecified site, M25.512 - Pain in left shoulder Erythrocyte Sedimentation Rate Today M19.90 - Unspecified osteoarthritis, unspecified site, R70.0 - Elevated erythrocyte sedimentation rate, R79.82 - Elevated C-reactive protein (CRP) Comprehensive Met. Panel Today M1. - Unspecified osteoarthritis, unspecified site, R70.0 - Elevated erythrocyte sedimentation rate, R79.82 - Elevated C-reactive protein (CRP) C Reactive Protein Today - Unspecified osteoarthritis, unspecified site, R70.0 - Elevated erythrocyte sedimentation rate, R79.82 - Elevated C-reactive protein (CRP) XR elbow LT min 3V Today - Unspecified osteoarthritis, unspecified site, M25.522 - Pain in left elbow Complete Blood Count Auto Diff Today - Unspecified osteoarthritis, unspecified site, R70.0 - Elevated erythrocyte sedimentation rate, R79.82 - Elevated C-reactive protein (CRP) Immunoglobulins,IgG IgA IgM Today - Unspecified osteoarthritis, unspecified site, R70.0 - Elevated erythrocyte sedimentation rate, R79.82 - Elevated C-reactive protein (CRP) Protein Electrophoresis, Serum Today - Unspecified osteoarthritis, unspecified site, R70.0 - Elevated erythrocyte sedimentation rate, R79.82 - Elevated C-reactive protein (CRP) Coding Level of Care Code Est Pt Level 4 (90235) Diagnoses Anemia, unspecified type D64.9 Anemia type: unspecified type Primary osteoarthritis of both knees M17.0 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
[2023-11-19 12:46] VITALS: BP 112/60; PULSE 76; TEMP 36.1; O2SAT 98; BMI 49.2
== END 2023-11-19 13:28 | disposition home or self-care (01) ==
PROVIDERS: PCP Internal Medicine; Visit Provider Nurse Practitioner Family
DX: D64.9 Anemia, unspecified (principal); M17.0 Bilateral primary osteoarthritis of knee; Z79.899 Other long term (current) drug therapy; M19.90 Unspecified osteoarthritis, unspecified site; E66.01 Morbid (severe) obesity due to excess calories; Z68.42 Body mass index [BMI] 45.0-49.9, adult; M25.522 Pain in left elbow; M25.512 Pain in left shoulder; G89.29 Other chronic pain
CPT/HCPCS: 99214

== ENCOUNTER → 2023-11-19 12:37 | Outpatient (BNVA) | payer OTHER, SELFPAY | PROVIDERS: PCP Internal Medicine; Visit Provider Nurse Practitioner Family | DX: M17.0 Bilateral primary osteoarthritis of knee (principal); M25.522 Pain in left elbow; M25.512 Pain in left shoulder; D64.9 Anemia, unspecified; M19.90 Unspecified osteoarthritis, unspecified site; E66.01 Morbid (severe) obesity due to excess calories; G89.29 Other chronic pain; Z79.899 Other long term (current) drug therapy; Z68.42 Body mass index [BMI] 45.0-49.9, adult | CPT/HCPCS: 99212 ==

== ENCOUNTER 2023-11-20 13:07 | Outpatient (REF) | payer MEDICARE, SELFPAY ==
--- NOTE | ~2023-11-20 | XR_ITS ---
EXAMINATION: XR LEFT SHOULDER XR LEFT ELBOW CLINICAL INFORMATION: Pain in left elbow, history of fracture. Left shoulder osteoarthritis unspecified site. COMPARISON: Left hand 02/20/2022. More recent prior images are not available for comparison at this time. TECHNIQUE: 3 views of the left shoulder. 3 views of the left elbow. FINDINGS: Left Shoulder: Narrowing of the subacromial space with hypertrophic spurring along the acromion and subjacent humeral head. Glenohumeral alignment maintained. Mild osteoarthritic changes in the acromioclavicular joint. Left Elbow: Advanced degenerative changes with hypertrophic change involving the joints of the elbow. Small calcifications along the superolateral aspect of the radial head. Curvilinear ossification along the lateral aspect of the lateral epicondyles may represent bony exostosis or sequela of prior trauma. No gross joint effusion. XR/XR shoulder LT min 2V IMPRESSION: 1. Advanced degenerative changes left shoulder. 2. Advanced degenerative changes left elbow. 3. Small calcifications along the superolateral aspect of the radial head of unknown age and etiology. Differential considerations include prior trauma or a chronic degenerative process. 4. Curvilinear ossification along the lateral aspect of the lateral epicondyles may represent bony exostosis or sequela of prior trauma. Correlation with clinical exam recommended to determine further management. Additional imaging with CT scan recommended for further evaluation if there is clinical concern for fracture or other pathology.
--- NOTE | ~2023-11-20 | XR_ITS ---
EXAMINATION: XR LEFT SHOULDER XR LEFT ELBOW CLINICAL INFORMATION: Pain in left elbow, history of fracture. Left shoulder osteoarthritis unspecified site. COMPARISON: Left hand 02/20/2022. More recent prior images are not available for comparison at this time. TECHNIQUE: 3 views of the left shoulder. 3 views of the left elbow. FINDINGS: Left Shoulder: Narrowing of the subacromial space with hypertrophic spurring along the acromion and subjacent humeral head. Glenohumeral alignment maintained. Mild osteoarthritic changes in the acromioclavicular joint. Left Elbow: Advanced degenerative changes with hypertrophic change involving the joints of the elbow. Small calcifications along the superolateral aspect of the radial head. Curvilinear ossification along the lateral aspect of the lateral epicondyles may represent bony exostosis or sequela of prior trauma. No gross joint effusion. XR/XR elbow LT min 3V IMPRESSION: 1. Advanced degenerative changes left shoulder. 2. Advanced degenerative changes left elbow. 3. Small calcifications along the superolateral aspect of the radial head of unknown age and etiology. Differential considerations include prior trauma or a chronic degenerative process. 4. Curvilinear ossification along the lateral aspect of the lateral epicondyles may represent bony exostosis or sequela of prior trauma. Correlation with clinical exam recommended to determine further management. Additional imaging with CT scan recommended for further evaluation if there is clinical concern for fracture or other pathology.
[2023-11-20 13:34] LABS: MANUAL DIFF FLAG NO
[2023-11-20 14:26] LABS: Basophils Percent Auto 0.4 % (0-2); Eosinophils Absolute Auto 0.2 X10*3/uL (0.0-0.4); Eosinophils Percent Auto 2.3 % (0-4); Hematocrit 38.4 % (37.0-47.0); Hemoglobin 11.9 g/dl (12.0-16.0); Imm Gran Abs Auto 0.04 X10*3/uL (0.00-0.03); Imm Gran Pct Auto 0.5 % (0.0-0.4); Lymphocytes Percent Auto 27.2 % (20-40); Mean Corpuscular Hemoglobin 26.1 pg (27.0-33.0); Mean Corpuscular Volume 84.2 fL (80.0-98.0); Mean Platelet Volume 10.2 fL (9.4-12.3); Monocytes Absolute Auto 0.5 X10*3/uL (0.1-1.2); Monocytes Percent Auto 6.5 % (2-11); Neutrophils Absolute Auto 4.6 x10*3/uL (2.0-8.3); Neutrophils Percent Auto 63.1 % (45-73); Platelet Count 161 X10*3/uL (160-400); Red Blood Count 4.56 X10*6/uL (4.20-5.50); Red Cell Distribution Width 14.8 % (11.0-16.0); White Blood Count 7.3 X10*3/uL (4.8-10.8)
[2023-11-20 15:00] LABS: Alanine Aminotransferase 11 U/L (0-31); Albumin Level 4.2 g/dL (3.5-5.0); Alkaline Phosphatase 75 U/L (39-117); Anion Gap 12 (12-20); Aspartate Amino Transferase 15 U/L (5-31); Bilirubin Total 0.2 mg/dL (0.0-1.0); Blood Urea Nitrogen 14 mg/dL (9-16); C Reactive Protein 1.28 mg/dL (< or = 0.50); Calcium 9.4 mg/dL (8.4-10.2); Carbon Dioxide 27 mmol/L (22-29); Chloride 104 mmol/L (96-108); Estimated Glomerular Filt Rate > 60; Glucose Random 133 mg/dL (60-115); Potassium 4.3 mmol/L (3.3-5.1); Sodium 139 mmol/L (135-145); Total Protein 7.4 g/dL (6.5-8.0)
[2023-11-20 15:01] LABS: Erythrocyte Sedimentation Rate 43 MM/HR (0-20)
[2023-11-22 06:48] LABS: IgA 497 mg/dL (70-320); IgG 1075 mg/dL (600-1540); IgM 167 mg/dL (50-300)
[2023-11-24 21:14] LABS: Prot Elec - Alpha1 0.3 g/dL (0.2-0.3); Prot Elec - Alpha2 0.9 g/dL (0.5-0.9); Prot Elec - Beta 1 0.5 g/dL (0.4-0.6); Prot Elec - Beta 2 0.5 g/dL (0.2-0.5); Prot Elec - Gamma 0.9 g/dL (0.8-1.7); Prot Elec - Total Protein 7.1 g/dL (6.1-8.1)
== END 2023-11-20 13:08 | disposition home or self-care (01) ==
LOC: HO.XRAY 13:07
PROVIDERS: PCP Internal Medicine; Visit Provider Nurse Practitioner Family
DX: M25.522 Pain in left elbow (principal); M25.512 Pain in left shoulder; M19.90 Unspecified osteoarthritis, unspecified site; R79.82 Elevated C-reactive protein (CRP); R70.0 Elevated erythrocyte sedimentation rate
CPT/HCPCS: 36415; 73030; 73080; 80053; 82784; 84165; 85025; 85652; 86140

== ENCOUNTER 2024-04-22 13:57 | Outpatient (AMB) | payer MEDICARE, SELFPAY ==
--- NOTE | 2024-04-22 13:58 | MHC.OFFVIS ---
Vital Signs 04/22/24 14:03 Height 5 ft 7 in Weight 309 lb 11.991 oz BMI 48.5 BP 120/70 Blood Pressure Location Rt radial Position Sitting Pulse 57 Pulse Source Pulse Oximeter Pulse Oximetry (%) 93 Oxygen Delivery Method Room Air Intake Visit Reasons: Inflammatory Arthritis/lm Intake Note: Patient presents for inflammatory arthritis. Allergies lantus Allergy (Intermediate, Uncoded 11/19/23 12:39) Fluctuating blood sugars Jadiance Adverse Reaction (Mild, Uncoded 04/22/24 14:03) Dizziness Medication List - Last Reconciled 04/22/24 by Donnell De Luna MD albuterol sulfate 90 mcg/actuation 2 puffs inhalation Q6H PRN alprazolam 0.25 mg PO DAILY PRN aspirin 1 tab PO DAILY blood sugar diagnostic (FreeStyle Lite Strips) carvedilol 1 tab PO BID dulaglutide (Trulicity) mg subcut fluticasone propionate 110 mcg/actuation (Flovent HFA) inhalation furosemide 20 mg PO DAILY PRN ibuprofen 800 mg PO BEDTIME insulin aspart U-100 (Novolog FlexPen U-100 Insulin aspart) See Protocol units subcut QIDACHS insulin degludec (Tresiba FlexTouch U-100 insulin) See Protocol units subcut QIDACHS levothyroxine orally 6 days a week; melatonin 10 mg PO BEDTIME metformin 2 tabs PO BID multivitamin 1 tab PO DAILY oxybutynin chloride ER 1 tab PO DAILY potassium chloride ER 1 tab PO BID sacubitril-valsartan 49-51 mg (Entresto) 1 tab PO BID sulfasalazine 500 mg PO BID HPI Comments Details: 63-year-old female with seronegative RA returns for follow-up. She remains on sulfasalazine 500 mg Twice daily. [facility] Medical History (Updated 11/20/23 @ 19:44 by FREEDOM Osorio-ELIZABETH) Left shoulder pain Left elbow pain Morbid obesity with BMI of 45.0-49.9, adult Morbid obesity with BMI of 50.0-59.9, adult Elevated sed rate Elevated C-reactive protein (CRP) Left anterior shoulder pain History of slipped capital femoral epiphysis prison use of drug Inflammatory arthritis Osteoarthritis of knees, bilateral Hypothyroid Diabetes CHF (congestive heart failure) Surgical History History of placement of ear tubes H/O wisdom tooth extraction History of tonsillectomy History of hip surgery H/O left knee surgery Family History Unknown No problems noted. Social History Household Members: Significant Other and Family Housing: House Are you a primary insurance healthcare consultant to a significant other at home: No Do you presently have visiting nurse or other home services: No 75 years or older and lives alone: No Alcohol intake: never Patient Tobacco Use Status: Never used Tobacco e-Cigarette/Vaping Use: Never Used service: No Current occupational status: retired Physical Exam Vital Signs: Last Vital Signs Pulse 57 04/22/24 14:03 BP 120/70 04/22/24 14:03 Pulse Ox 93 04/22/24 14:03 Oxygen Delivery Method Room Air 04/22/24 14:03 BMI result Body Mass Index 48.5 Assessment & Plan Assessment & Plan (1) Inflammatory arthritis: Comment: Onset around 2015. RF, CCP negative sulfasalazine since 2016 Code(s): M19.90 - Unspecified osteoarthritis, unspecified site Category: Medical Plan: This is a 63 year old female with seronegative RA who presents for follow-up. This is her 1st visit with me. She remains on sulfasalazine 500 mg Twice daily. She states that she is doing about the same overall. Lowering the sulfasalazine dose last year did not make much of a difference. States that she continues to have bilateral knee pain, more severe on the left. Especially at night after being on her feet the whole day. She takes ibuprofen 600 mg most nights, and would take Tylenol Arthritis when she runs out of the ibuprofen. She denies any swollen joints. She has had knee steroid injections in the past which are not consistently helpful. She also received a series of 3 gel injections in the left knee without much improvement. Upon evaluation I think patient's symptoms are more consistent with mechanical and degenerative arthritis, especially of her knees. 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 Advised patient to limit the use of ibuprofen as much as possible, try to substitute it with Tylenol Arthritis and/or Voltaren gel. Advised patient to use the Voltaren gel 4 times a day (4) History of slipped capital femoral epiphysis: Comment: Left: Surgical repair at age 5 Code(s): Z87.39 - Personal history of other diseases of the musculoskeletal system and connective tissue Category: Medical Plan This is patient's 1st visit with me, I spent 46 minutes reviewing patient's chart, evaluating patient, ordering diagnostic workup, counseling patient and documenting in the chart Orders: Orders Comprehensive Met. Panel 6 Months M19.90 - Unspecified osteoarthritis, unspecified site, Z79.899 - Other termite treater (current) drug therapy Erythrocyte Sedimentation Rate 6 Months M19.90 - Unspecified osteoarthritis, unspecified site, Z79.899 - Other skilled nursing (current) drug therapy Complete Blood Count Auto Diff 6 Months M19.90 - Unspecified osteoarthritis, unspecified site, Z79.899 - Other skilled nursing (current) drug therapy C Reactive Protein 6 Months M19.90 - Unspecified osteoarthritis, unspecified site, Z79.899 - Other skilled nursing (current) drug therapy Complete Blood Count Auto Diff Today M19.90 - Unspecified osteoarthritis, unspecified site, Z79.899 - Other termite treater (current) drug therapy Comprehensive Met. Panel Today M19.90 - Unspecified osteoarthritis, unspecified site, Z79.899 - Other skilled nursing (current) drug therapy C Reactive Protein Today M19.90 - Unspecified osteoarthritis, unspecified site, Z79.899 - Other skilled nursing (current) drug therapy Erythrocyte Sedimentation Rate Today M19.90 - Unspecified osteoarthritis, unspecified site, Z79.899 - Other skilled nursing (current) drug therapy Coding Level of Care Code Est Pt Level 5 (25386) Diagnoses Inflammatory arthritis M19.90 prison use of drug Z79.899 Primary osteoarthritis of both knees M17.0 Osteoarthritis type: primary History of slipped capital femoral epiphysis Z87.39
[2024-04-22 14:03] VITALS: BP 120/70; PULSE 57; O2SAT 93; BMI 48.5
== END 2024-04-22 14:38 | disposition home or self-care (01) ==
PROVIDERS: PCP Internal Medicine; Visit Provider Student in an Organized Health Care Education/Training Program
DX: M19.90 Unspecified osteoarthritis, unspecified site (principal); Z79.899 Other long term (current) drug therapy; M17.0 Bilateral primary osteoarthritis of knee; Z87.39 Personal history of other diseases of the musculoskeletal system and connective tissue
CPT/HCPCS: 99215

== ENCOUNTER → 2024-04-22 13:57 | Outpatient (BNVA) | payer MEDICARE, SELFPAY | PROVIDERS: PCP Internal Medicine; Visit Provider Student in an Organized Health Care Education/Training Program | DX: M19.90 Unspecified osteoarthritis, unspecified site (principal); M17.0 Bilateral primary osteoarthritis of knee; Z79.899 Other long term (current) drug therapy; Z87.39 Personal history of other diseases of the musculoskeletal system and connective tissue | CPT/HCPCS: 99212 ==

== ENCOUNTER 2024-12-09 13:23 | Outpatient (REF) | payer OTHER, SELFPAY ==
[2024-12-09 15:58] LABS: MANUAL DIFF FLAG NO
[2024-12-09 16:01] LABS: Basophils Percent Auto 0.3 % (0-2); Eosinophils Absolute Auto 0.2 X10*3/uL (0.0-0.4); Hemoglobin 11.5 g/dl (12.0-16.0); Imm Gran Abs Auto 0.02 X10*3/uL (0.00-0.03); Imm Gran Pct Auto 0.3 % (0.0-0.4); Lymphocytes Absolute Auto 1.8 X10*3/uL (1.2-4.9); Lymphocytes Percent Auto 23.3 % (20-40); Mean Corpuscular HGB Conc 31.9 g/dl (31.0-35.0); Mean Corpuscular Hemoglobin 26.6 pg (27.0-33.0); Mean Corpuscular Volume 83.1 fL (80.0-98.0); Mean Platelet Volume 9.8 fL (9.4-12.3); Monocytes Absolute Auto 0.5 X10*3/uL (0.1-1.2); Monocytes Percent Auto 6.1 % (2-11); Neutrophils Absolute Auto 5.2 x10*3/uL (2.0-8.3); Platelet Count 177 X10*3/uL (160-400); Red Blood Count 4.33 X10*6/uL (4.20-5.50); White Blood Count 7.7 X10*3/uL (4.8-10.8)
[2024-12-09 16:53] LABS: Erythrocyte Sedimentation Rate 62 MM/HR (0-20)
[2024-12-09 16:57] LABS: Alanine Aminotransferase 17 U/L (0-31); Albumin Level 4.1 g/dL (3.5-5.0); Alkaline Phosphatase 91 U/L (39-117); Anion Gap 13 (12-20); Aspartate Amino Transferase 28 U/L (5-31); Bilirubin Total 0.3 mg/dL (0.0-1.0); Blood Urea Nitrogen 21 mg/dL (9-16); C Reactive Protein 1.72 mg/dL (< or = 0.50); Calcium 9.9 mg/dL (8.4-10.2); Carbon Dioxide 27 mmol/L (22-29); Chloride 106 mmol/L (96-108); Estimated Glomerular Filt Rate > 60; Glucose Random 97 mg/dL (60-115); Potassium 4.5 mmol/L (3.3-5.1); Sodium 141 mmol/L (135-145); Total Protein 7.8 g/dL (6.5-8.0)
== END 2024-12-09 13:24 | disposition home or self-care (01) ==
LOC: HO.HMGCLDS 13:23
PROVIDERS: PCP Internal Medicine; Visit Provider Student in an Organized Health Care Education/Training Program
DX: M19.90 Unspecified osteoarthritis, unspecified site (principal); Z79.899 Other long term (current) drug therapy
CPT/HCPCS: 36415; 80053; 85025; 85652; 86140

== ENCOUNTER 2025-02-22 14:05 | Outpatient (AMB) | payer OTHER, MEDICAID, SELFPAY ==
[2025-02-22 14:33] VITALS: BP 126/66; PULSE 72; O2SAT 96; BMI 47.6
--- NOTE | 2025-02-22 14:33 | A.OFFVIS_ITS ---
Vital Signs 02/22/25 14:33 Height 5 ft 7 in Weight 304 lb 3.806 oz BMI 47.6 BP 126/66 Blood Pressure Location Lt brachial Position Sitting Pulse 72 Pulse Source Pulse Oximeter Pulse Oximetry (%) 96 Oxygen Delivery Method Room Air Intake Visit Reasons: RA Intake Note: Patient last seen by Doctor Donnell De Luna on 04/22/24. Presents today for RA follow up and test results. Patient requesting cortisone shot in right knee, been causing her pain for a month, she is unable to sleep at night, takes more meds at night to calm the pain. Allergies lantus Allergy (Intermediate, Uncoded 02/22/25 14:37) Fluctuating blood sugars Jadiance Adverse Reaction (Mild, Uncoded 02/22/25 14:37) Dizziness Medication List - Last Reconciled 02/22/25 by Sonal Kuo MD albuterol sulfate 90 mcg/actuation 2 puffs inhalation Q6H PRN alprazolam 0.25 mg PO DAILY PRN aspirin 1 tab PO DAILY blood sugar diagnostic (FreeStyle Lite Strips) carvedilol 1 tab PO BID dulaglutide (Trulicity) mg subcut fluticasone propionate 110 mcg/actuation (Flovent HFA) inhalation furosemide 20 mg PO DAILY PRN ibuprofen 800 mg PO BEDTIME insulin aspart U-100 (Novolog FlexPen U-100 Insulin aspart) See Protocol units subcut QIDACHS insulin degludec (Tresiba FlexTouch U-100 insulin) See Protocol units subcut QIDACHS levothyroxine orally 6 days a week; melatonin 10 mg PO BEDTIME metformin 2 tabs PO BID multivitamin 1 tab PO DAILY oxybutynin chloride ER 1 tab PO DAILY potassium chloride ER 1 tab PO BID sacubitril-valsartan 49-51 mg (Entresto) 1 tab PO BID sulfasalazine 500 mg PO BID HPI Comments Details: Patient is a 64-year-old female with diabetes, hypertension complicated by heart failure, hypothyroidism, overactive bladder, polyarticular osteoarthritis and seronegative rheumatoid arthritis here today for follow up Interval History: Patient last seen 04/22/[address] De Luna. At that time she was following up for her seronegative rheumatoid arthritis on sulfasalazine 500 mg twice a day. Despite chronically elevated inflammatory markers based on the exam there was no evidence of synovitis and her symptoms were attributed to her degenerative art hritis. No changes were made to her medication. For her osteoarthritis we recommended topical diclofenac. Today, She is noting increased stiffness in her knees, left wrist and hands over the last 3-4 months Rheumatologic History: Onset around 2016. RF, CCP negative sulfasalazine since [address] Painting: The patient presents for evaluation of inflammatory arthritis. Her record at [facility] was reviewed. She was seen back in 2016 and was thought to have some mild inflammatory arthritis. Dr. Lyons started her on sulfasalazine at 750 mg twice a day. She did have some improvement with that and has remained on it since then. She does not think she has had any side effects with it. She has a new primary doctor who felt uncomfortable prescribing it so it was stopped. She felt worse with more stiffness in the hands. She was restarted eventually after being off it for a month and felt somewhat better. She did not really see any swelling in the hands. She has osteoarthritis in left knee. This has always been her most problematic joint. She had a left slipped capital femoral epiphysis repaired when she was 5 years old. She notes some decreased range of motion in the hip but it does not really bother her. She notes the left leg has some different length than the right. The patient is on medications for congestive heart failure and type 2 diabetes. She gets treatment for macular degeneration with occasional intra-ocular injections. Current Rheumatology Medication(s): Sulfasalazine 500 mg twice a day [facility] Medical History (Updated 02/22/25 @ 14:56 by Sonal Kuo MD) Seronegative rheumatoid arthritis Left shoulder pain Left elbow pain Morbid obesity with BMI of 45.0-49.9, adult Morbid obesity with BMI of 50.0-59.9, adult Elevated sed rate Elevated C-reactive protein (CRP) Left anterior shoulder pain History of slipped capital femoral epiphysis assisted use of drug Osteoarthritis of knees, bilateral Hypothyroid Diabetes CHF (congestive heart failure) Surgical History History of placement of ear tubes H/O wisdom tooth extraction History of tonsillectomy History of hip surgery H/O left knee surgery Family History Unknown No problems noted. Social History Household Members: Significant Other and Family Housing: House Are you a primary urgent care nurse practitioner to a significant other at home: No Do you presently have visiting nurse or other home services: No 75 years or older and lives alone: No Alcohol intake: never Patient Tobacco Use Status: Never used Tobacco e-Cigarette/Vaping Use: Never Used service: No Current occupational status: retired Review of Systems Const Details: Review of Systems Constitutional: Denies fever, chills, weight loss ENT: Denies vision changes, eye pain or eye redness, dental caries, dry mouth GI: Denies nausea, vomiting, diarrhea, abdominal pain, change in BM Pulm: Denies SOB, BROWER, hemoptysis, wheezing Cards: Denies chest pain, palpitations Skin: Denies Raynaud's, rash, nail changes, photosensitivity, FILBERT GROWER: Denies headaches, weakness, paresthesias, recurrent falls MSK: as per HPI All other systems reviewed and are unremarkable except noted above Physical Exam Vital Signs: Last Vital Signs Pulse 72 02/22/25 14:33 BP 126/66 02/22/25 14:33 Pulse Ox 96 02/22/25 14:33 Oxygen Delivery Method Room Air 02/22/25 14:33 BMI result Body Mass Index 47.6 Vital signs reviewed Physical Examination CONSTITUITIONAL Patient alert and cooperative. Well appearing and in no apparent painful distress Obese HEENT Conjunctiva and sclera clear. ?No lymphadenopathy. ? CHEST/RESPIRATORY SYSTEM Normal respiratory effort and able to speak in complete sentences. ?Clear to auscultation bilaterally. ?No crackles, rales, rhonchi, wheezes heard. CARDIAC SYSTEM Regular rate and rhythm. ?S1 and S2 heard no murmurs. ?Radial pulses intact bilaterally MSK Hands: ?Able to make a fist. No synovitis noted to the MCPs, PIPs or DIPs. ?No tenderness to palpation of these joints. Herbeden's nodes noted Wrists: ?Full range of motion at the wrists without pain. ?No tenderness to palpation or synovitis noted to the wrists. Elbows: Full range of motion without pain. No tenderness, weakness, swelling, increased warmth or erythema. Shoulders: Full range of active range of motion without pain. No tenderness, weakness, swelling, increased warmth or erythema. Hips: Full range of motion without pain. Hip bursa: No tenderness to palpation Knees: ?Full range of motion. ?No tenderness, swelling, increased warmth or erythema.?No effusion or crepitations. TTP of bilateral pes anserine bursa. no TTP of knee joint line Ankles: Full range of motion. ?No tenderness, swelling, increased warmth or erythema.? Feet: ?Negative squeeze test. ?No tenderness to palpation or swelling of the MTPs. Tender points:?No tenderness to palpation of the bilateral trapezius, supraspinatus, greater trochanters, anterior costochondral junctions, bilateral gluteal areas, bilateral suboccipital muscle insertions SKIN Skin intact without rashes. Office Procedures AMB Joint Injection/Aspiration Joint Injection/Aspiration Details: Procedure was explained to the patient and consent was obtained. ? The area of interest was identified and confirmed with patient. ?This was subsequently cleaned with chlorhexidine x3. ? The area was then anesthetized using ethyl chloride spray. 40 mg Kenalog with 1 cc 1% lidocaine was injected without issue. ?Minimal to no bleeding. ?Patient tolerated procedure. Primary Site: right knee (Right pes anserine bursa) Prep: site was prepped using aseptic technique and ethochloride spray was applied Injected: 40 mg of, Kenalog, with 1 mL of and 1% plain lidocaine Approach Used: anterior Procedure: The patient tolerated the procedure well Coding 60177 - Large joint Procedure code (CPT) selection complete AMB Joint Injection/Aspiration Joint Injection/Aspiration Details: Procedure was explained to the patient and consent was obtained. ? The area of interest was identified and confirmed with patient. ?This was subsequently cleaned with chlorhexidine x3. ? The area was then anesthetized using ethyl chloride spray. 40 mg Kenalog with 1 cc 1% lidocaine was injected without issue. ?Minimal to no bleeding. ?Patient tolerated procedure. Primary Site: left knee (left pes anserine bursa) Prep: site was prepped using aseptic technique and ethochloride spray was applied Injected: 40 mg of, Kenalog, with 1 mL of and 1% plain lidocaine Approach Used: anterior Procedure: The patient tolerated the procedure well Coding 96004 - Large joint Procedure code (CPT) selection complete Office Meds lidocaine (PF) 10 mg/mL (1 %) injection solution Performing Provider: Sonal Kuo MD Performing Location: [facility] [place] Rheumatology Administered by: Sonal Kuo MD on 02/22/25 15:25 Dose Route Admin Location Dispensed Lot Number Expiration Date NDC Mechanical Expert 1 mL Infiltration Right pes anserine bursa 2 mL [id number] 11/13/26 05302-424-56 [employer] Kenalog 40 mg/mL suspension for injection Performing Provider: Sonal Kuo MD Performing Location: [facility] [place] Rheumatology Administered by: Sonal Kuo MD on 02/22/25 15:25 Dose Route Admin Location Dispensed Lot Number Expiration Date ND Mechanical Expert 40 mg intrabursal Right pes anserine bursa 1 mL [id number] 12/14/25 [address]-9 [employer] lidocaine (PF) 10 mg/mL (1 %) injection solution Performing Provider: Sonal Kuo MD Performing Location: [facility] [place] Rheumatology Administered by: Sonal Kuo MD on 02/22/25 15:25 Dose Route Admin Location Dispensed Lot Number Expiration Date ND Mechanical Expert 1 mL Infiltration left pes anserine bursa 2 mL [id number] 11/13/26 79249-219-06 [employer] Kenalog 40 mg/mL suspension for injection Performing Provider: Sonal Kuo MD Performing Location: [facility] [place] Rheumatology Administered by: Sonal Kuo MD on 02/22/25 15:25 Dose Route Admin Location Dispensed Lot Number Expiration Date ND Mechanical Expert 40 mg intrabursal left pes anserine bursa 1 mL [id number] 12/14/25 [address]-8 [employer] Results Reviewed Results Reviewed: Laboratory Tests 11/20/23 12/09/24 13:28 13:29 WBC 7.7 RBC 4.33 Hgb 11.5 L Hct 36.0 L Plt Count 177 ESR 62 H Sodium 141 Potassium 4.5 Chloride 106 Carbon Dioxide 27 BUN 21 H Creatinine 0.79 Total Bilirubin 0.3 AST 28 ALT 17 Alkaline Phosphatase 91 C-Reactive Protein 1.28 H 1.72 H Laboratory Tests 02/20/22 12:40 Rheumatoid Factor < 15.0 Cycl Citrul Peptide IgG <16 Assessment & Plan Assessment & Plan (1) Seronegative rheumatoid arthritis: Comment: Onset around 2015. RF, CCP negative sulfasalazine since 2016 Code(s): M06.00 - Rheumatoid arthritis without rheumatoid factor, unspecified site Category: Medical Plan: #Seronegative RA Patient is a 64-year-old female with seronegative rheumatoid arthritis here today for follow up. Currently in remission on sulfasalazine monotherapy Plan - Sulfasalazine 500mg bid - Labs today: CBC, CMP, ESR, CRP - RTC 6 months - Labs before visit: CBC, CMP, ESR, CRP (2) Polyarticular osteoarthritis: Code(s): M15.9 - Polyosteoarthritis, unspecified Plan: #Polyarticular OA Patient with polyarticular OA currently affecting mainly her bilateral knees. Has tried steroid injections and gel injections in the past with little help. Recommended weight loss and exercises (3) Pes anserinus bursitis of both knees: Code(s): M70.51 - Other bursitis of knee, right knee; M70.52 - Other bursitis of knee, left knee Plan: #Bilateral pes anserine bursitis s/p bilateral steroid injections today (4) Encounter for monitoring sulfasalazine therapy: Code(s): Z51.81 - Encounter for therapeutic drug level monitoring; Z79.899 - Other group home (current) drug therapy Plan: #Long-term Use of Sulphasalazine Discussed with patient the risks and benefits of sulfasalazine in the management of the rheumatic condition Benefits include: - Reduced pain, reduce mortality, maintenance of remission then reduction of flares Risks include: - GI upset, hemolysis (especially if G6PD deficiency), eosinophilia, headache, dizziness, rash, elevated LFTs Plan I spent 26 minutes reviewing the record and labs, taking a history, examining the patient, discussing the treatment plan, ordering diagnostic work up and docu menting in the medical record Orders: Orders C Reactive Protein 6 Months M06.00 - Rheumatoid arthritis without rheumatoid factor, unspecified site Erythrocyte Sedimentation Rate 6 Months M06.00 - Rheumatoid arthritis without rheumatoid factor, unspecified site Complete Blood Count Auto Diff 6 Months M06.00 - Rheumatoid arthritis without rheumatoid factor, unspecified site Comprehensive Met. Panel 6 Months M06.00 - Rheumatoid arthritis without rheumatoid factor, unspecified site AMB Joint Injection/Aspiration Today M70.51 - Other bursitis of knee, right knee, M70.52 - Other bursitis of knee, left knee AMB Joint Injection/Aspiration Today M70.51 - Other bursitis of knee, right knee, M70.52 - Other bursitis of knee, left knee Medications: New lidocaine (PF) 1 mL Infiltration ONCE 2 mL 0RF M70.51 - Other bursitis of knee, right knee, M70.52 - Other bursitis of knee, left knee lidocaine (PF) 1 mL Infiltration ONCE 2 mL 0RF M70.51 - Other bursitis of knee, right knee, M70.52 - Other bursitis of knee, left knee Kenalog (triamcinolone acetonide) 40 mg intrabursal ONCE 1 mL 0RF NS M70.51 - Other bursitis of knee, right knee, M70.52 - Other bursitis of knee, left knee Kenalog (triamcinolone acetonide) 40 mg intrabursal ONCE 1 mL 0RF NS M70.51 - Other bursitis of knee, right knee, M70.52 - Other bursitis of knee, left knee Coding Level of Care Code Est Pt Level 3 (48589) Complex EM visit Add On G2211 Diagnoses Seronegative rheumatoid arthritis M06.00 Polyarticular osteoarthritis M15.9 Pes anserinus bursitis of both knees M70.51; M70.52 Encounter for monitoring sulfasalazine therapy Z51.81; Z79.899 CPT Codes Coding - 73795 Large joint: 35208 - Large joint ([id number]) Coding - 52579 Large joint: 67165 - Large joint ([id number])
--- OUTSIDE RECORDS SUMMARY | 2025-02-22 16:53 | XMS_ITS | Clinical Summary ---
Author Organization [address] [place] [address] [place] [phone] Phone Care Team Providers Care Embroidery Cutter Name Role Phone Ayanna Bustillo MD Primary Care Provider [phone] Allergies Active Allergy Reactions Criticality Noted Date Comments Empagliflozin Dehydration 09/02/2024 Lantuss-Forte 08/05/2019 Only with Basaglar - Sugars up and down with this. Medications MULTIVITAMIN ORAL 1 daily Active melatonin 5 mg tablet Take 1 Tab by mouth as needed. Active fluticasone HFA (FLOVENT HFA) 110 mcg/actuation inhaler Inhale 1 Puff into the lungs 2 times daily. 09/23/19 23 Active carvediloL (COREG) 25 mg tablet Take 1 tablet by mouth twice daily with meals. 04/16/20 24 Active albuterol HFA (PROAIR HFA ; PROVENTIL HFA ; VENTOLIN HFA) 90 mcg/actuation inhaler Inhale 2 Puffs into the lungs every 4 hours as needed for Wheezing or Shortness of Breath (EMERGENCY USE ONLY). 04/10/20 22 Active sacubitriL-hill sartan (Entresto) 49-51 mg per tablet Take 1 tablet by mouth twice daily. 04/16/20 24 Active sulfaSALAzine (AZULFIDINE) 500 mg tablet Take 1 Tablet by mouth 2 times daily. Active incontinence pad, liner, disp (Poise Pads) pad 120 Each by Does not apply route daily as needed for Other (urinary incontinence) . JC-99 120/month 11 refills poise pads #6 ultimate absorbency extra long 12/25/19 Active pen needle, diabetic 31 gauge x 5/16 needle To inject insulin 4x daily 09/21/19 23 Active metFORMIN (GLUCOPHAGE) 500 mg tablet Take 2 tablets by mouth twice daily with meals. 360 tablet 1 09/14/20 24 Active aspirin 81 mg EC tablet Take 1 tablet by mouth daily. 90 tablet 1 09/14/20 24 Active blood sugar diagnostic (FreeStyle Lite Strips) test strip TEST THREE TIMES A DAY DIRECTED 300 strip 1 12/01/19 25 Active insulin lispro (HumaLOG KwikPen Insulin) 100 unit/mL injection pen Inject 5-19 Units under the skin 3 (three) times a day before meals. Inject 5-19 units 3 times per day as directed. 100-125=5U, 126-150=7U, 151-175=9U, 176-200=11U, 201-225=13U, 226-250=15U, 251-275=17U, 276-300=19U 5 Pen 5 11/25/19 25 Active ibuprofen (ADVIL,MOTRIN) 800 mg tablet Take 1 tablet (800 mg total) by mouth 1 (one) time each day. 90 tablet 1 12/08/19 25 Active Tresiba FlexTouch U-100 100 unit/mL (3 mL) injection pen Inject 42 Units under the skin at bedtime. 12 mL 2 01/08/20 25 Active oxyBUTYnin XL (DITROPAN-XL) 15 mg 24 hr tablet Take 1 tablet (15 mg total) by mouth 1 (one) time each day. 30 tablet 1 02/01/20 25 Active potassium chloride (KLOR-CON) 10 mEq CR tablet Take 1 tablet (10 mEq total) by mouth 2 (two) times a day. 60 tablet 1 02/01/20 25 Active furosemide (LASIX) 20 mg tablet TAKE ONE TABLET BY MOUTH EVERY DAY NEEDED FOR SHORTNESS OF BREATH AND SWELLING 30 tablet 5 01/22/20 25 Active ALPRAZolam (XANAX) 0.25 mg tablet Take 1 tablet (0.25 mg total) by mouth at bedtime as needed for anxiety. Max Daily Amount: 0.25 mg 28 tablet 02/02/20 25 Active levothyroxine (SYNTHROID, LEVOTHROID) 175 mcg tablet Take 1 tablet (175 mcg total) by mouth 1 (one) time each day before breakfast. Only 1/2 tab on Sundays tablet 1 03/07/20 25 Active Trulicity 4.5 mg/0.5 mL pen injector injection Inject 0.5 mL (4.5 mg total) under the skin 1 (one) time per week. 6 mL 02/26/20 25 Active Trulicity 4.5 mg/0.5 mL pen injector injection Inject 0.5 mL (4.5 mg total) under the skin 1 (one) time per week. 6 mL 12/02/19 25 025 Discontinued levothyroxine (SYNTHROID, LEVOTHROID) 175 mcg tablet Take 1 tablet (175 mcg total) by mouth 1 (one) time each day before breakfast. Only 1/2 tab on Sundays tablet 2 12/11/19 25 025 Discontinued ALPRAZolam (XANAX) 0.25 mg tablet Take 1 tablet (0.25 mg total) by mouth at bedtime as needed for anxiety. Max Daily Amount: 0.25 mg 28 tablet 01/05/20 25 025 Discontinued(Re order) Active Problems Problem Noted Date Diagnosed Date Type 2 diabetes mellitus wit h eye manifestations (CMS/HCC V24, CMS/[facility] V28) 08/29/2024 Diabetes mellitus type 2 wit h neurological manifestations (CMS/HCC V24, CMS/[facility] V28) 08/29/2024 Assessment & Plan (11/24/2024 12:42 PM EDT): Patient is to continue Trulicity 4.5 mg weekly, metformin 500 mg twice daily, Tresiba 42 unit daily and NovoLog sliding scale. Patient states insurance company no longer cover NovoLog. They sent her a letter saying that she needs to switch to Humalog. Humalog sliding scale ordered. Checking Your Blood Sugars: Please check your sugars at the following times of day: before breakfast, before lunch, before dinner, and before bedtime. Write your fingerstick blood sugars down on a log sheet or record book. Bring them to your appointment Educated patient on pre and post prandial blood sugar goals of <120 and <170 respectively, as well as an A1c goal of <7% and goal FBG of 90-130. Educated patient on complications associated with uncontrolled diabetes. These include but are not limited to an increased risk of cardiovascular disease, retinopathy, neuropathy, renal disease, increased risk of infections with open wounds and amputations. Diet Recommendation: Patient is maintain a low carb diet to optimize blood sugar levels. Patient is counseled about low calorie diet (avoid sweet drinks/snacks, and replace red meat with chicken and fish and increase salad intake). Activity/Exercise Recommendation: Patient is to attempt exercise daily or at least 3 times a week for 30 min. If able to set aside 2 days of of the week for strength exercise. Recheck A1c today and in 3 months I also order BMP to evaluate renal function and electrolytes. When to Call your Healthcare Provider If your blood sugar falls below 70 and you do not know why or you become unconscious If you are sick and unable to take liquids because or nausea or vomiting If you have a fever over 101 If your blood sugar is 300 or higher on greater than 3 separate occasions during the same week If you are just unsure what to do Your Action Plan Check blood glucose as directed and write down all results. Review blood pressure medications Make appointment to see your eye doctor Check feet for sores every day Continue to work on weight loss with a goal of losing 2-4 pounds per month Avoid walking in bare or stocking feet due to the numbness in your feet Increase physical activity Try to stop smoking Avoid alcohol Orders: POC Urine Non-Auto W/O Micro Urinalysis with reflex microscopic and culture; Future Basic metabolic panel; Future Hemoglobin A1c; Future Morbid obesity with BMI of 5 0.0-59.9, adult ([facility] V24, [facility] V28) 07/29/2024 Urinary incontinence 06/06/2022 COVID-19 virus infection 02/04/2022 Overview (07/29/2024): 5.23.22 Anxiety 07/03/2020 Overview (07/29/2024): Longstanding, Xanax (on controlled substance agreement) Inflammatory arthritis 09/29/2018 Overview (08/13/2024): Saw Dr. Lyons in [id number] - Sulfasalazine CTS (carpal tunnel syndrome) 07/16/2016 CHF (congestive heart failure) ([facility] V24, [facility] V28) 10/23/2015 Overview (08/29/2024): -Most recent echocardiogram in February 2024 showed normal left ventricular cavity size, wall thickness with low normal systolic function, normal regional wall motion with an ejection fraction 50 to 55%, normal RV size and systolic function, grade 2 diastolic dysfunction consistent with increased left atrial pressure, no hemodynamically significant valve disease-unchanged from echo in March 2020 Assessment & Plan (10/28/2024 3:19 PM EST): Will update echocardiogram in 6 months. Patient has been doing well with limiting her sodium indiscretion. Has tried SGLT2 inhibitors in the past but has had adverse effects. Will not add that today. I did speak to her about potentially adding spironolactone in the future, however patient has had high normal potassiums in the past and has also had hypotension in the past. Will not add that as well. Orders: Transthoracic echocardiogram (TTE) complete with PRN contrast, bubble, strain, and 3D order panel; Future Asthma 06/07/2015 DJD (degenerative joint disease) of knee 015 CERAMICS ARTIST (background diabetic ret inopathy) ([facility] V24, [facility] V28) 08/17/2013 Overview (08/29/2024): = Type II diabetes mellitus wi th renal manifestations ([facility] V24, [facility] V28) 07/02/2010 Microalbuminuria 03/09/2010 Hypertension 01/24/2006 Overview (08/29/2024): = Assessment & Plan (10/28/2024 3:19 PM EST): Patient reports that blood pressure measurements at home are generally 120/70. Will not change medication regimen. Educated on the importance of diet lifestyle to help further assist in reducing blood pressure. The patient was encouraged to follow low-salt low-fat diet, make purposeful strides towards weight loss, and engage in routine aerobic exercise as tolerated. Orders: ECG 12 lead Hypothyroidism 01/24/2006 Encounters Date Type Department Care Team Description 02/22/2025 Telephone Adult Medicine [address] [phone] Cheli Morgan MA Medication Problem 01/04/2025 11:30 AM EDT Office Visit Adult Medicine [address] [phone] Ellyn Anthony PA Encounter for annual wellness visit (AWV) in Medicare patient (Primary Dx); Patient refuses vital signs; Benzodiazepine contract exists; Type 2 diabetes mellitus with retinopathy, with long-term current use of insulin, macular edema presence unspecified, unspecified laterality, unspecified retinopathy severi* ([facility] [place], [facility] V28); Diabetes mellitus type 2 with neurological manifestations ([facility]24, [facility] V28); Hypothyroidism due to acquired atrophy of thyroid; Type 2 diabetes mellitus with stage 3a chronic kidney disease, without long-term current use of insulin ([facility] V24, [facility] V28); Chronic right-sided congestive heart failure ([facility] V24, [facility] V28); Microalbuminuria; Primary hypertension; Moderate persistent asthma without complication; Anxiety; Morbid obesity with BMI of 45.0-49.9, adult ([facility] V24, [facility] V28) 11/24/2024 10:00 AM EDT Office Visit Adult Medicine [address] [phone] Tito Barragan, JOY OPERATOR Frequency of urination (Primary Dx); Diabetes mellitus type 2 with neurological manifestations ([facility] V24, [facility] V28) from Last 3 Months Immunizations Name Administration Dates Next Due PPD Test 12/25/2017, 7,12/27/2015,2014,11/23/2013 Pfizer (ages 12 & older) Biv alent, COVID-19 09/11/2022 Pfizer SARS-CoV-2 COVID-19, mRNA, LNP-S, preservative free 09/01/2021,01/15/2021,12/27/2020 Pneumococcal conjugate 13 va lent (Prevnar 13, PCV13) 2mo and older 02/16/2016 TD, Adsorbed, Preservative Free 07/23/2021 Td Tetanus diptheria (Tdvax) 7yo and older 07/23/2021 Tdap Tetanus diptheria acell ular pertussis (Boostrix; Adacel) 7yo and older 06/13/2008 Surgical History Surgery Date Site/Laterality Comments CERVICAL BIOPSY W/ LOOP ELEC TRODE EXCISION 10/2004 Severe dysplasia OTHER SURGICAL HISTORY ARTHROSCOPY PROCEDURE NEC; COMMENT: left knee OTHER SURGICAL HISTORY knee arthroscopy: slipped cap CARPAL TUNNEL RELEASE 2014 Right TONSILLECTOMY Medical History Medical History Date Comments Diabetes mellitus type 2 wit h neurological manifestations ([facility] [place], [facility] V28) 01/17/2015 ) Arthritis, degenerative 01/21/2015 Other specified personal his tory presenting hazards to health(V15.89) PRECANCEROUS CELL S OF CERVIX Asthma 06/07/2015 Inflammatory arthritis 09/29/2018 Urinary incontinence 06/06/2022 Type 2 diabetes mellitus wit h eye manifestations ([facility]24, [facility] V28) 08/29/2024 Morbid obesity with BMI of 5 0.0-59.9, adult ([facility] V24, [facility] V28) 07/29/2024 Hypertension 01/24/2006 = Microalbuminuria 03/09/2010 Anxiety 07/03/2020 Longstanding, Xa nax (on controlled substance agreement) CERAMICS ARTIST (background diabetic ret inopathy) ([facility] V24, [facility] V28) 08/17/2013 = CHF (congestive heart failur e) ([facility] [place]24, [facility] V28) 10/23/2015 ?? -Most recent echocardiog jennifer in February 2024 showed normal left ventricular cavity size, wall thickness with low normal systolic function, normal regional wall motion with an ejection fraction 50 to 55%, normal RV size and systolic function, grade 2 diastolic dysfunction consistent with increased left atrial pressure, no hemodynamically significant valve disease-unchanged from echo in March 2020 CTS (carpal tunnel syndrome) 07/16/2016 DJD (degenerative joint dise ase) of knee 01/21/2015 Hypothyroidism 01/24/2006 Family History Medical History Relation Name Comments Diabetes Brother Other: moyamoya Daughter Diabetes Maternal Grandfather Thyroid disease Sister Breast cancer Neg Hx Relation Name Status Comments Brother Daughter Father Maternal Grandfather Maternal Grandmother Mother Paternal Grandfather Paternal Grandmother Sister Social History Tobacco Use Types Packs/Day Years Used Date Smoking Tobacco: Former Cigarettes Q uit: 09/14/2000 Smokeless Tobacco: Never Alcohol Use Standard Drinks/Week Comments No 0 (1 standard drink = 0.6 oz pur e alcohol) Housing Instability Answer Date Recorde d Are you worried that in the next 2 months you may not have stable housing? No 01/04/2025 Food Access & Nutrition Answer Date Rec orded Do you have access to a vari ety of food including fruits and vegetables? Yes 01/04/2025 Access to Healthcare Answer Date Record ed Within the last 3 months, ho w many times did you visit the emergency department for your medical care? 0 01/04/2025 Health Literacy Answer Date Recorded How often do you need to hav e someone help you when you read instructions, pamphlets, or other written material from your doctor or pharmacy? Rarely 01/04/2025 Caregiver: How often do you need to have someone help you when you read instructions, pamphlets, or other written material from your doctor or pharmacy? Not on file 01/04/2025 Financial Risk Answer Date Recorded How hard is it for you to pa y for the very basics like food, housing, medical care, and air conditioning / heating? Somewhat hard 01/04/2025 Transportation Answer Date Recorded Has the lack of transportati on kept you from meetings, work, or from getting things needed for daily living? No Has the lack of transportati on kept you from medical appointments or from getting medications? No 01/04/2025 Social Isolation Answer Date Recorded How often do you feel lonely or isolated from th ose around you? Never 01/04/2025 Food Risk Answer Date Recorded Within the past 12 months we worried whether our food would run out before we got money to buy more. Never true 01/04/2025 Within the past 12 months th e food we bought just didn't last and we didn't have money to get more. Never true 01/04/2025 Dependent Care Answer Date Recorded Do you need help finding or paying for care for your loved ones. For example, child day care provider or elderly care for an older adult? No 01/04/2025 Education Answer Date Recorded Do you think completing more education or training, like finishing a GED, going to college, or learning a trade, would be helpful for you? Yes 01/04/2025 Employment and Income Answer Date Recor ded During the last four weeks, have you been actively looking for work? No 01/04/2025 Living Situation Answer Date Recorded What is your living situation? 0 01/04/2025 Comments Unknown Sex and Gender Information Value Date Recorded Sex Assigned at Not on file Legal Sex Female 2:38 AM EST Gender Identity Not on file Sexual Orientation Not on file Obstetrics History Last Filed Vital Signs Vital Sign Reading Time Taken Comments Blood Pressure 132/69 11/24/2024 10:10 AM EDT Pulse 72 01/04/2025 11:35 AM EDT Temperature 35.9 ??C (96.7 ??F) 01/04/2025 11:35 AM E DT Respiratory Rate 16 01/04/2025 11:35 AM EDT Oxygen Saturation 96% 01/04/2025 11:35 AM EDT Inhaled Oxygen Concentration - - Weight 142 kg (314 lb) 01/04/2025 11:35 AM EDT Height 170.2 cm (5' 7 ) 01/04/2025 11:35 AM EDT Body Mass Index 49.18 01/04/2025 11:35 AM EDT Plan of Treatment Upcoming Encounters Date Type Department Care Team (Late st Contact Info) Description 04/27/2025 1:30 PM EDT Ancillary Procedure [facility] Cardiology [facility] [address] [facility] [address] [place] [address] 05/10/2025 10:40 AM EDT Office Visit [facility] Cardiology [facility] [address] [facility] [address] [place] [address] Kota Franklin NP [address] [place] [address] 05/18/2025 1:00 PM EDT Office Visit Adult Medicine [address] [place] [address] Ayanna Bustillo MD [address] [place] [phone] (work) Health Maintenance Due Date Last Done Comments Breast Cancer Screening 1958 Diabetes: Annual Foot Exam 1968 Diabetes: Annual Retina Eye Exam 1968 Zoster Vaccines (1 of 2) 2008 Pneumococcal Vaccine: 50+ Years (2 of 2 - PPSV23) 04/12/2016 02/16/2016 RSV Immunization Adult Patients (1 - Risk 60-74 years 1-dose series) 2018 Osteoporosis Screening (Bone Density Screening) 08/24/2022 COVID-19 Vaccine ( season) 2024 09/11/2022, 09/01/2021, 01/15/2021, Additional history exists Influenza Vaccine (Season Ended) 2025 Diabetes: Blood Sugar Control Test (HGBA1C) 05/27/2025 11/24/2024, 09/02/2024, 04/26/2024, Additional history exists Diabetes: Annual Urine Albumin-Creatinine Ratio (uACR) 09/02/2025 09/02/2024, 10/14/2023 Diabetes: Annual GFR (Glomerular Filtration Rate) 11/24/2025 11/24/2024, 09/02/2024, 06/16/2024, Additional history exists Hypertension/CHF/CAD Annual BMP Blood Test 11/24/2025 11/24/2024, 09/02/2024, 06/16/2024, Additional history exists Depression Screening 01/04/2026 01/04/2025, 04/26/20 24 Falls Risk Assessment 01/04/2026 01/04/2025 Medicare Annual Wellness Visit 01/04/2026 01/04/2025 Social Influencers of Health Screening 01/04/2026 01/04/2025 Colorectal Cancer Screening: FIT-DNA (Cologuard) 07/23/2026 07/23/2023 Cholesterol Screening (Lipid Panel) 04/26/2029 04/26/2024, 04/26/2024 DTaP,Tdap,and Td Vaccines (4 - Td or Tdap) 07/23/2031 07/23/2021, 07/23/2021, 06/13/2008 Hepatitis C Screening Completed 12/22/2015 Colorectal Cancer Screening: Colonoscopy Discontinued 07/23/2023 HIB Vaccines Aged Out No longer eligi ble based on patient's age to complete this topic HPV Vaccines Aged Out No longer eligi ble based on patient's age to complete this topic Hepatitis A Vaccines Aged Out No long er eligible based on patient's age to complete this topic Hepatitis B Vaccines Aged Out No long er eligible based on patient's age to complete this topic IPV Vaccines Aged Out No longer eligi ble based on patient's age to complete this topic MMR Vaccines Aged Out No longer eligi ble based on patient's age to complete this topic Meningococcal ACWY Vaccine Aged Out N o longer eligible based on patient's age to complete this topic Meningococcal B Vaccine Aged Out No l onger eligible based on patient's age to complete this topic RSV Immunization Patients Under 20 months Aged Out No longer eligible based on patient's age to complete this topic Varicella Vaccines Aged Out No longer eligible based on patient's age to complete this topic Procedures Procedure Name Priority Date/Time Associated Diagnosis Comments JIMENEZ URINE CULTURE TUBE Routine 01/04/2025 12:50 PM EDT Frequency of urination Diabetes mellitus type 2 with neurological manifestations (CMS/HCC V24, CMS/HCC V28) Malodorous urine Hypothyroidism due to acquired atrophy of thyroid URINALYSIS WITH REFLEX MICROSCOPIC AND CULTURE Routine 01/04/2025 12:25 PM EDT Frequency of urination Diabetes mellitus type 2 with neurological manifestations (CMS/HCC V24, CMS/HCC V28) Malodorous urine Hypothyroidism due to acquired atrophy of thyroid URINALYSIS WITH REFLEX MICROSCOPIC AND CULTURE Routine 01/04/2025 12:25 PM EDT Frequency of urination Diabetes mellitus type 2 with neurological manifestations (CMS/HCC V24, CMS/HCC V28) Malodorous urine Hypothyroidism due to acquired atrophy of thyroid DRUG ABUSE SCREEN EXPANDED WITH REFLEX CONFIRMATION, URINE Routine 01/04/2025 12:25 PM EDT Benzodiazepine contract exists CULTURE URINE Routine 01/04/2025 12:25 PM EDT Frequency of urination Diabetes mellitus type 2 with neurological manifestations (CMS/HCC V24, CMS/HCC V28) Malodorous urine Hypothyroidism due to acquired atrophy of thyroid POC URINE NON-AUTO W/O MICRO Routine 11/24/2024 10:56 AM EDT Frequency of urination Diabetes mellitus type 2 with neurological manifestations (CMS/HCC V24, CMS/HCC V28) THYROID STIMULATING HORMONE Routine 11/24/2024 10:50 AM EDT Malodorous urine Hypothyroidism due to acquired atrophy of thyroid BASIC METABOLIC PANEL Routine 11/24/2024 10:50 AM EDT Frequency of urination Diabetes mellitus type 2 with neurological manifestations (CMS/HCC V24, CMS/HCC V28) HEMOGLOBIN A1C Routine 11/24/2024 10:50 AM EDT Frequency of urination Diabetes mellitus type 2 with neurological manifestations (CMS/HCC V24, CMS/HCC V28) MICROALBUMIN CREATININE URINE RATIO Routine 09/02/2024 1:40 PM EST Type 2 diabetes mellitus with stage 3 chronic kidney disease, without long-term current use of insulin, unspecified whether stage 3a or 3b CKD (CMS/HCC V24, CMS/HCC V28) DEPRESSION SCREENING Routine 04/26/2024 LIPID PANEL Routine 04/26/2024 COLONOSCOPY Routine 07/23/2023 HEPATITIS C SCREENING Routine 12/22/2015 from Last 3 Months or Most Recently Relevant to Health Maintenance Results * Jimenez urine culture tube (01/04/2025 12:50 PM EDT) Extra Tube Hold for add-ons. 01/04/2025 2:01 PM EDT [facility] Comment:Auto resulted. Urine Urine specimen obtained by clean catch procedure / Unknown Non-blood Collection / Unknown 01/04/2025 12:50 PM EDT 01/04/2025 12:50 PM EDT us Tito Barragan JOY OPERATOR LAB URINE ORDERABLES Final R esult [facility] [address] [place] [address], [place] [phone] * (ABNORMAL) Urinalysis with reflex microscopic and culture (01/04/2025 12:25 PM EDT) Specific [place] Urine 1.020 1.003 - 1.030 LAB URINALYSIS - AUTOMATED METHOD 01/04/2025 2:22 PM EDT [facility] pH, Urine 6.0 5.0 - 8.0 pH LAB URINALYSIS - AUTOMATED METHOD 01/04/2025 2:22 PM [facility] Leukocytes, Urine Small(A) Negative LAB URINALYSIS - AUTOMATED METHOD 01/04/2025 2:22 PM [facility] Nitrite, Urine Negative Negative LAB URINALYSIS - AUTOMATED METHOD 01/04/2025 2:22 PM [facility] Protein, Urine Trace <=Trace mg/dL LAB URINALYSIS - AUTOMATED METHOD 01/04/2025 2:22 PM [facility] Glucose, Urine Negative Negative mg/dL LAB URINALYSIS - AUTOMATED METHOD 01/04/2025 2:22 PM [facility] Ketones, Urine Negative Negative mg/dL LAB URINALYSIS - AUTOMATED METHOD 01/04/2025 2:22 PM [facility] Urobilinogen, Urine 0.2 0.2 - 1.0 mg/dL LAB URINALYSIS - AUTOMATED METHOD 01/04/2025 2:22 PM [facility] Bilirubin, Urine Negative Negative LAB URINALYSIS - AUTOMATED METHOD 01/04/2025 2:22 PM [facility] Blood, Urine Negative Negative LAB URINALYSIS - AUTOMATED METHOD 01/04/2025 2:22 PM [facility] RBC, Urine 4 0 - 4 /HPF 01/04/2025 2:22 PM EDT [facility] WBC, Urine 4 0 - 4 /HPF 01/04/2025 2:22 PM EDT [facility] Squamous Epithelial, Urine 10 0 - 60 /LPF 01/04/2025 2:22 PM EDT [facility] Bacteria, Urine Negative Negative /HPF 01/04/2025 2:22 PM EDT [facility] Hyaline Casts, Urine 3 0 - 3 /LPF 01/04/2025 2:22 PM EDT [facility] Urine Urine specimen obtained by clean catch procedure / Unknown Non-blood Collection / Unknown 01/04/2025 12:25 PM EDT 01/04/2025 12:25 PM EDT Tito Barragan JOY OPERATOR LAB URINE ORDERABLES Final R esult [facility] [address] [place] [address], * Drug abuse screen expanded with reflex confirmation, urine (01/04/2025 12:25 PM EDT) Amphetamine Screen, Ur Negative Negative LAB CHEMISTRY METHOD 01/04/2025 2:53 PM EDT [facility] Comment:Certain OTC medicati ons containing ephedrine, phenylephrine, pseudoephedrine and phenylpropanolamine can cause false positive results. Barbiturate Screen, Ur Negative Negative LAB CHEMISTRY METHOD 01/04/2025 2:53 PM EDT [facility] Benzodiazepine Screen, Ur Negative Negative LAB CHEMISTRY METHOD 01/04/2025 2:53 PM EDT [facility] Cocaine Screen, Ur Negative Negative LAB CHEMISTRY METHOD 01/04/2025 2:53 PM EDT [facility] Opiate Screen, Ur Negative Negative LAB CHEMISTRY METHOD 01/04/2025 2:53 PM EDT [facility] Cannabinoid (THC) Screen, Ur Negative Negative LAB CHEMISTRY METHOD 01/04/2025 2:53 PM EDT [facility] Comment:Specimens from patie nts taking pantoprazole sodium (Protonix) have been shown to produce false positive results. Fentanyl, Ur Negative Negative LAB CHEMISTRY METHOD 01/04/2025 2:53 PM EDT [facility] Oxycodone Screen, Ur Negative Negative LAB CHEMISTRY METHOD 01/04/2025 2:53 PM EDT [facility] Urine Urine specimen obtained by clean catch procedure / Unknown Non-blood Collection / Unknown 01/04/2025 12:25 PM EDT 01/04/2025 12:25 PM EDT Narrative [facility] - 01/04/2025 2:53 PM EDT Assay cutoffs: Amphetamines ? 1000 ng/mL Barbiturates ?200 ng/mL Benzodiazepines ?? 200 ng/mL Cocaine ? 300 ng/mL Fentanyl ?1 ng/mL Opiates ? 300 ng/mL Oxycodone ? 100 ng/mL THC ?50 ng/mL Semi-quantitative assay for screening purposes only. Unconfirmed screening result should not be used for non-medical purposes. *POSITIVE RESULTS ARE AUTOMATICALLY SENT FOR ALTERNATE METHOD CONFIRMATION* us Ellyn HENNING LAB URINE ORDERABLES Final Re sult [facility] ([facility]) [facility] [address] [place] [address], * Culture urine (01/04/2025 12:25 PM EDT) Culture, Urine 50,000-99,000 CFU/mL Mixed bacterial morphotypes present suggestive of possible contamination during collection. Suggest appropriate recollection if clinically indicated. 01/05/2025 10:37 AM EDT [facility] Urine Urine specimen obtained by clean catch procedure / Unknown Non-blood Collection / Unknown 01/04/2025 12:25 PM EDT 01/04/2025 2:22 PM EDT Tito Barragan JOY OPERATOR LAB MICROBIOLOGY - GENERAL O RDERABLES Final Result [facility] [address] [place] [address], [place] [phone] * (ABNORMAL) POC Urine Non-Auto W/O Micro (11/24/2024 10:56 AM EDT) Leukocytes UA POC Negative Negative Nitrite UA POC Negative Negative Urobilinogen UA POC Negative Negative Protein UA POC Positive(A) Negative PH UA POC 5.0 5.0 - 9.0 Blood UA POC Negative Negative, Trace Specific [place] UA POC 1,015.000(A) 1.001 - 1.035 Ketones UA POC Negative Negative Bilirubin UA POC Negative(A) Negative Glucose UA POC Normal Normal, Trace Urine Urine specimen obtained by clean catch procedure / Unknown 11/24/2024 10:56 AM EDT Tito Barragan NP POINT OF CARE TEST ENTER/GARETT T ORDERABLES Edited Result - Final * Thyroid stimulating hormone (11/24/2024 10:50 AM EDT) TSH 2.15 0.40 - 4.00 mcIU/mL LAB CHEMISTRY METHOD 11/24/2024 7:24 PM EDT [facility] Blood Venous blood specimen / Unknown Venipuncture / Unknown 11/24/2024 10:50 AM EDT 11/24/2024 10:50 AM EDT Ayanna Bustillo MD LAB BLOOD ORDERABLES Final Resul t Performing Organization Address [facility]/ZIP Co de Phone Number [facility] [address] [place] [address], * (ABNORMAL) Hemoglobin A1c (11/24/2024 10:50 AM EDT) [facility] Hemoglobin A1C 6.5(H) <6.5 % LAB CHEMISTRY METHOD 11/24/2024 2:03 PM EDT [facility] Mean Bld Glu Estim. 140 mg/dL LAB CHEMISTRY METHOD 11/24/2024 2:03 PM EDT [facility] Blood Venous blood specimen / Unknown Venipuncture / Unknown 11/24/2024 10:50 AM EDT 11/24/2024 10:50 AM EDT Tito Barragan JOY OPERATOR LAB BLOOD ORDERABLES Final R esult Performing Organization Address [facility]/ZIP Co de Phone Number [facility] [address] [place] [address], [place] [phone] * (ABNORMAL) Basic metabolic panel (11/24/2024 10:50 AM EDT) [facility] Sodium 139 133 - 145 mmol/L LAB CHEMISTRY METHOD 11/24/2024 2:03 PM T [facility] Potassium 4.8 3.5 - 5.5 mmol/L LAB CHEMISTRY METHOD 11/24/2024 2:03 PM T [facility] Chloride 107 96 - 110 mmol/L LAB CHEMISTRY METHOD 11/24/2024 2:03 PM [facility] CO2 28 21 - 32 mmol/L LAB CHEMISTRY METHOD 11/24/2024 2:03 PM T [facility] Anion Gap 4 3 - 11 LAB CHEMISTRY METHOD 11/24/2024 2:03 PM EDT [facility] Glucose 131(H) 70 - 100 mg/dL LAB CHEMISTRY METHOD 11/24/2024 2:03 PM EDT [facility] BUN 20 5 - 25 mg/dL LAB CHEMISTRY METHOD 11/24/2024 2:03 PM EDT [facility] Creatinine 0.82 0.50 - 1.10 mg/dL LAB CHEMISTRY METHOD 11/24/2024 2:03 PM EDT [facility] eGFR 79 >=60 mL/min/1. 73m2 LAB CHEMISTRY METHOD 11/24/2024 2:03 PM EDT [facility] Comment:Calculation based on the??Chronic Kidney Disease Epidemiology Collaboration (CKD-EPI) equation refit??without adjustment for race. BUN/Creatinine Ratio 24.4 LAB CHEMISTRY METHOD 11/24/2024 2:03 PM EDT [facility] Calcium 9.5 8.5 - 10.5 mg/dL LAB CHEMISTRY METHOD 11/24/2024 2:03 PM EDT [facility] Blood Venous blood specimen / Unknown Venipuncture / Unknown 11/24/2024 10:50 AM EDT 11/24/2024 10:50 AM EDT us Tito Barragan JOY OPERATOR LAB BLOOD ORDERABLES Final R esult [facility] [address] [place] [address], * (ABNORMAL) Microalbumin creatinine urine ratio (09/02/2024 1:40 PM EST) Creatinine, Urine 113.0 mg/dL LAB CHEMISTRY METHOD 09/02/2024 5:25 PM EST [facility] Microalb, Ur 223.0(H) 0.0 - 29.0 mg/L LAB CHEMISTRY METHOD 09/02/2024 5:25 PM EST [facility] Microalb/Crea t Ratio 197(H) <30 mg/g creat LAB CHEMISTRY METHOD 09/02/2024 5:25 PM EST [facility] Urine Urine specimen obtained by clean catch procedure / Unknown Non-blood Collection / Unknown 09/02/2024 1:40 PM EST 09/02/2024 1:40 PM EST Ayanna Bustillo MD LAB URINE ORDERABLES Final Resul t [facility] [address] [place] [address], * Depression Screening (04/26/2024) [facility] Depression Screening abstracted [facility] Provider HEALTH MAINTENANCE Final Result * (ABNORMAL) Lipid panel (04/26/2024) [facility] LDL/HDL Ratio 3 0 - 4 Triglycerides 164(A) 0 - 150 mg/dL Cholesterol 151 0 - 200 mg/dL HDL 49 >=40 mg/dL LDL Cholesterol 70 0 - 100 mg/dL Blood Venous blood specimen / Unknown [facility] Provider LAB BLOOD ORDERABLES Lorena l Result * Colonoscopy (07/23/2023) [facility] Colonoscopy abstracted,no interpretation Anatomical Region Laterality Modality Other [facility] Provider HEALTH MAINTENANCE Final Result * Hepatitis C Screening (12/22/2015) [facility] Hepatitis C Screening abstracted [facility] Provider HEALTH MAINTENANCE Final Result from Last 3 Months or Most Recently Relevant to Health Maintenance Insurance MEDICAID - [place] [employer] [place] [phone] Care Teams 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
== END 2025-02-22 15:20 | disposition home or self-care (01) ==
PROVIDERS: PCP Internal Medicine; Visit Provider Student in an Organized Health Care Education/Training Program
DX: M06.09 Rheumatoid arthritis without rheumatoid factor, multiple sites (principal); M15.9 Polyosteoarthritis, unspecified; M70.51 Other bursitis of knee, right knee; M70.52 Other bursitis of knee, left knee; Z51.81 Encounter for therapeutic drug level monitoring; Z79.899 Other long term (current) drug therapy
CPT/HCPCS: 20610; 99213

== ENCOUNTER → 2025-02-22 14:05 | Outpatient (BNVA) | payer OTHER, SELFPAY | PROVIDERS: PCP Internal Medicine; Visit Provider Student in an Organized Health Care Education/Training Program | DX: M06.00 Rheumatoid arthritis without rheumatoid factor, unspecified site (principal); M70.51 Other bursitis of knee, right knee; M70.52 Other bursitis of knee, left knee; M15.9 Polyosteoarthritis, unspecified; Z51.81 Encounter for therapeutic drug level monitoring; Z79.899 Other long term (current) drug therapy | CPT/HCPCS: 20610; 99212; J3300 ==

== ENCOUNTER 2025-06-10 13:00 | Outpatient (REF) | payer OTHER, MEDICAID, SELFPAY ==
--- OUTSIDE RECORDS SUMMARY | 2025-06-10 14:23 | XMS_ITS | Clinical Summary ---
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 Piercing Machine Operator Name Role Phone Ayanna Bustillo MD Primary Care Provider [phone] Allergies No known active allergies Medications ALPRAZolam (XANAX) 0.25 MG tablet 2 Active aspirin 81 MG EC tablet 2 Active FREESTYLE LITE Strp strips 2 Active FREESTYLE LITE METER meter kit 2 Active carvedilol (COREG) 25 MG tablet 2 Active ibuprofen (ADVIL,MOTRIN) 800 MG tablet 2 Active NOVOLOG FLEXPEN U-100 INSULIN 100 unit/mL (3 mL) flexpen 2 Active TRESIBA FLEXTOUCH U-100 injection pen 2 Active metFORMIN (GLUCOPHAGE) 500 MG tablet 2 Active levothyroxine (SYNTHROID, LEVOTHROID) 200 MCG tablet 2 Active oxybutynin (DITROPAN XL) 15 MG 24 hr tablet 2 Active potassium chloride (KLOR-CON) 10 MEQ ER tablet 2 Active SACUBITRIL-VALSA RTAN 49-51 mg per tablet 2 Active sulfaSALAzine (AZULFIDINE) 500 mg tablet 2 Active albuterol 90 mcg/actuation inhaler 2 Active FLOVENT HFA 110 mcg/actuation inhaler 2 Active TRULICITY 1.5 mg/0.5 mL subcutaneous injection 2 Active levoFLOXacin (LEVAQUIN) 500 MG tablet Take 1 tablet (500 mg total) by mouth daily. 3 tablet 2 Active Additional Information Patient not taking.Reported on 07/05/2022 furosemide (LASIX) 20 MG tablet 4 Active Active Problems No known active problems Immunizations Immunization Administration Dates Next Due COVID-19 (Pre-07/07) Pfizer Vaccine, mRNA, PF Pneumococcal conjugate PCV13 02/16/2016 Td (adult),2 Lf Tetanus Toxoid, PF, Adsorbed 04/2021 Tdap 06/13/2008 Social History Tobacco Use Types Packs/Day Years Used Date Smoking Tobacco: Never Smokeless Tobacco: Never Tobacco Cessation:Counseling Given: Not Answered Education Answer Date Recorded Are you interested in more education? Not on guillaume e 01/25/2023 Are you concerned about learning? Not on file 01/25/2023 No 01/25/2023 No 01/25/2023 Digital Access Answer Date Recorded No 02/04/2023 No 02/04/2023 Reliable internet access at home? Not on file 02/04/2023 Device with a working camera? Not on file Comments Unknown Sex and Gender Information Value Date Recorded Sex Assigned at Not on file Legal Sex Female 7:01 PM EST Gender Identity Not on file Sexual Orientation Not on file Last Filed Vital Signs Vital Sign Reading Time Taken Comments Blood Pressure 144/76 06/10/2024 9:48 AM EDT Pulse 78 06/10/2024 9:48 AM EDT Temperature 36.4 C (97.5 F) 06/10/2024 9:48 AM EDT Respiratory Rate 20 06/10/2024 9:48 AM EDT Oxygen Saturation 99% 06/10/2024 9:48 AM EDT Inhaled Oxygen Concentration - - Weight 136.1 kg (300 lb) 07/05/2022 11:56 AM EDT Height 167.6 cm (5' 6 ) 07/05/2022 11:56 AM EDT Body Mass Index 48.42 07/05/2022 11:56 AM EDT Plan of Treatment Health Maintenance Due Date Last Done Comments LIPID PANEL 1958 TSH LEVEL 1958 DEPRESSION SCREENING 1970 HEPATITIS C SCREENING 1976 MAMMOGRAM 1998 COLOGUARD 2003 COLONOSCOPY 2003 COLORECTAL CANCER SCREENING 2003 FIT TEST 2003 FOBT 2003 SIGMOIDOSCOPY 2003 VIRTUAL COLONOSCOPY 2003 ZOSTER VACCINES (1 of 2) 2008 PNEUMOCOCCAL VACCINES (50+ years) (2 of 2 - PPSV23) 02/15/2017 02/16/2016 RSV VACCINE (1 - Risk 60-74 years 1-dose series) 2018 OSTEOPOROSIS SCREENING INITIAL (ONE-TIME) 2023 INFLUENZA VACCINE (#1) 2025 COVID-19 VACCINE ( - season) 2025 09/11/2022, 09/01/2021, 01/15/2021, Additional history exists CREATININE LEVEL 06/16/2025 06/16/2024 POTASSIUM LEVEL 06/16/2025 06/16/2024 SCREENING FOR DIABETES 06/16/2027 06/16/2024 Adult Td,Tdap Booster 07/23/2031 07/23/2021, 008 SMOKING STATUS SCREENING (Once After 26 Yrs) Completed 06/10/2024 HEPATITIS A VACCINES Aged Out No long er eligible based on patient's age to complete this topic HIB VACCINES Aged Out No longer eligi ble based on patient's age to complete this topic MENINGOCOCCAL VACCINES (ACWY) Aged Out No longer eligible based on patient's age to complete this topic MENINGOCOCCAL VACCINES (B) Aged Out N o longer eligible based on patient's age to complete this topic Medical Devices Not on file Procedures Procedure Name Priority Date/Time Associated Diagnosis Comments COMPREHENSIVE METABOLIC PANEL Routine 06/16/2024 11:56 AM EDT Osteoarthritis, unspecified osteoarthritis type, unspecified site Other remote computer terminal operator (current) drug therapy from Last 3 Months or Most Recently Relevant to Health Maintenance Results * (ABNORMAL) Comprehensive metabolic panel (06/16/2024 11:56 AM EDT) SODIUM 142 133 - 146 mmol/L [facility] POTASSIUM 4.4 3.3 - 5.1 mmol/L [facility] CHLORIDE 105 96 - 108 mmol/L [facility] CO2 27 21 - 35 mmol/L [facility] BUN 18 6 - 19 mg/dL [facility] CREATININE 0.70 0.5 - 1.5 mg/dL [facility] GLUCOSE 118(H) 70 - 99 mg/dL [facility] ALBUMIN 3.8(L) 3.9 - 4.8 g/dL [facility] TOTAL PROTEIN 7.1 6.5 - 8.0 g/dL [facility] CALCIUM 9.5 8.4 - 10.3 mg/dL [facility] ALKALINE PHOSPHATASE 80 39 - 117 U/L [facility] TOTAL BILIRUBIN <0.2 0.0 - 1.2 mg/dL [facility] AST 22 0 - 37 U/L [facility] ALT 16 0 - 40 U/L [facility] GLOBULIN 3.3 1 - 4.8 g/dL [facility] EGFR 96 >59 mL/min/1.7 3m2 [facility] Comment:Estimated glomerular filtration rate calculated using the CKD-EPI refit equation. ANION GAP 14 10 - 20 mmol/L [facility] Blood 06/16/2024 11:5 6 AM EDT 06/16/2024 11:59 AM EDT Donnell De Luna MD LAB BLOOD ORDER KRISTIN Final Result Performing Organization Address City/State/[facility] [[email or web address]] Co de Phone Number [facility] [address] [place] [address] from Last 3 Months or Most Recently Relevant to Health Maintenance Insurance [facility] [employer] MEDICARE REPLACEMENT CARE MEDICARE REPLACEMENT [facility] [employer] C[employer] MEDICARE REPLACEMENT [facility]IC[facility] REPLACEMENT Care Teams Piercing Machine Operator Relationship Specialty Start Date End Date Ayanna Bustillo MD [address] [place] [id number] PCP - General Internal Medicine 01/11/22 Additional Source Comments The information contained in this document represents components of the legal health record. It is not the complete legal health record.[facility]
--- OUTSIDE RECORDS SUMMARY | 2025-06-10 14:23 | XMS_ITS | Clinical Summary ---
Author Organization [address] [place] [address] [place] [phone] Phone Care Team Providers Care Cryptography Teacher Name Role Phone Ayanna Bustillo MD Primary Care Provider [phone] Allergies Active Allergy Reactions Criticality Noted Date Comments Empagliflozin Dehydration 09/02/2024 Lantuss-Forte 08/05/2019 Only with Basaglar - Sugars up and down with this. Medications MULTIVITAMIN ORAL 1 daily Active melatonin 5 mg tablet Take 1 Tab by mouth as needed. Active fluticasone HFA (FLOVENT HFA) 110 mcg/actuation inhaler Inhale 1 Puff into the lungs 2 times daily. 09/23/19 23 Active albuterol HFA (PROAIR HFA ; PROVENTIL HFA ; VENTOLIN HFA) 90 mcg/actuation inhaler Inhale 2 Puffs into the lungs every 4 hours as needed for Wheezing or Shortness of Breath (EMERGENCY USE ONLY). 04/10/20 22 Active sulfaSALAzine (AZULFIDINE) 500 mg tablet Take 1 Tablet by mouth 2 times daily. Active incontinence pad, liner, disp (Poise Pads) pad 120 Each by Does not apply route daily as needed for Other (urinary incontinence) . JC-99 120/month 11 refills poise pads #6 ultimate absorbency extra long 12/25/19 23 Active pen needle, diabetic 31 gauge x 5/16 needle To inject insulin 4x daily 09/21/19 23 Active insulin lispro (HumaLOG KwikPen Insulin) 100 [...] day. 90 tablet 1 12/08/19 25 Active furosemide (LASIX) 20 mg tablet TAKE ONE TABLET BY MOUTH EVERY DAY NEEDED FOR SHORTNESS OF BREATH AND SWELLING 30 tablet 5 01/22/20 25 Active Contour Plus Blue Meter misc Use to check blood sugar three times daily 1 strip 02/24/20 25 Active glucose blood (Contour Plus Test Strip) test strip Use to check blood sugar three times daily 300 each 1 02/24/20 25 026 Active carvediloL (COREG) 25 mg tablet Take 1 tablet by mouth twice daily with meals. 180 tablet 2 03/09/20 25 Active Entresto 49-51 mg per tablet Take 1 tablet by mouth twice daily. 180 tablet 2 03/09/20 25 Active metFORMIN (GLUCOPHAGE) 500 mg tablet Take 2 tablets (1,000 mg total) by mouth 2 (two) times a day with meals. 360 tablet 1 03/08/20 25 Active aspirin 81 mg EC tablet Take 1 tablet (81 mg total) by mouth 1 (one) time each day. 90 tablet 1 03/08/20 25 Active Tresiba FlexTouch U-100 100 unit/mL (3 mL) injection pen Inject 42 units under the skin at bedtime. 12 mL 03/08/20 25 Active levothyroxine (SYNTHROID, LEVOTHROID) 175 mcg tablet Take 1 tablet (175 mcg total) by mouth 1 (one) time each day before breakfast. 09/16 on Friday 84 tablet 04/07/20 25 Active Trulicity 4.5 mg/0.5 mL pen injector injectionIndic ations:Type 2 diabetes mellitus with stage 3a chronic kidney disease, without long-term current use of insulin ([facility] V24, [facility] V28) Inject 0.5 mL (4.5 mg total) under the skin 1 (one) time per week. 6 mL 1 05/18/20 25 Active ALPRAZolam (XANAX) 0.25 mg tablet Take 1 tablet (0.25 mg total) by mouth at bedtime as needed for anxiety. Max Daily Amount: 0.25 mg 28 tablet 05/25/20 25 Active oxyBUTYnin XL (DITROPAN-XL) 15 mg 24 hr tablet Take 1 tablet (15 mg total) by mouth at bedtime. 30 tablet 1 06/29/20 25 Active potassium chloride (KLOR-CON M20) 20 mEq CR tablet Take 1 tablet (20 mEq total) by mouth 1 (one) time each day in the morning. 30 each 1 06/29/20 25 Active oxyBUTYnin XL (DITROPAN-XL) 15 mg 24 hr tablet Take 1 tablet (15 mg total) by mouth 1 (one) time each day. 30 tablet 2 03/16/20 25 025 Discontinued potassium chloride (KLOR-CON) 10 mEq CR tablet Take 1 tablet (10 mEq total) by mouth 2 (two) times a day. 60 tablet 2 03/16/20 25 025 Discontinued ALPRAZolam (XANAX) 0.25 mg tablet Take 1 tablet (0.25 mg total) by mouth at bedtime as needed for anxiety. Max Daily Amount: 0.25 mg 28 tablet 04/27/20 25 025 Discontinued(Re order) Trulicity 4.5 mg/0.5 mL pen injector injection Inject 0.5 mL (4.5 mg total) under the skin 1 (one) time per week. 2 mL 05/09/20 25 025 Discontinued(Re order) Active Problems Problem Noted Date Diagnosed Date Hyperlipidemia 05/06/2025 Assessment & Plan (05/06/2025 1:45 PM EDT): The patient reports that she is going to be updating a lipid panel with her PCP. LDL from 1 year prior was at 70, this is at target. Triglycerides are slightly elevated, would like this below 150. Patient should adhere to a healthy cardiac diet. Type 2 diabetes mellitus wit h eye manifestations (CMS/HCC V24, CMS/HCC V28) 08/29/2024 Diabetes mellitus type 2 wit h neurological manifestations ([facility] V24, [facility] V28) 08/29/2024 Assessment & Plan (11/24/2024 12:42 [...] of 5 0.0-59.9, adult ([facility] V24, [facility] V28) 07/29/2024 Urinary incontinence 06/06/2022 COVID-19 virus infection 02/04/2022 Overview (07/29/2024): 5.23.22 Anxiety 07/03/2020 Overview (07/29/2024): Longstanding, Xanax (on controlled substance agreement) Inflammatory arthritis 09/29/2018 Overview (08/13/2024): Saw Dr. Lyons in [id number] - Sulfasalazine CTS (carpal tunnel syndrome) 07/16/2016 CHF (congestive heart failure) ([facility] V24, [facility] V28) 10/23/2015 Overview (08/29/2024): -Most recent echocardiogram in February 2024 showed normal left ventricular cavity size, wall thickness with low normal systolic function, normal regional wall motion with an ejection fraction 50 to 55%, normal RV size and systolic function, grade 2 diastolic dysfunction consistent with increased left atrial pressure, no hemodynamically significant valve disease-unchanged from echo in March 2020 Assessment & Plan (05/06/2025 1:44 PM EDT): Patient has grade 2 diastolic dysfunction on echocardiogram from 2023. She did update another echocardiogram on 04/2025 which I am waiting for the results. For now she should continue on the Entresto, carvedilol, and furosemide as needed. If patient starts to have fluid volume issues, would initiate spironolactone and discontinue the potassium supplement. Patient had adverse effect to the SGLT2 inhibitor so we will not initiate that. She seems euvolemic on exam today. Should continue to limit sodium consumption. Should continue to check her weights daily. If needed in the future could titrate up Entresto dosage. Assessment & Plan (10/28/2024 3:19 PM EST): [...] DJD (degenerative joint disease) of knee 015 BREASTER (background diabetic ret inopathy) ([facility] V24, [facility] V28) 08/17/2013 Overview (08/29/2024): = Type II diabetes mellitus wi th renal manifestations ([facility] V24, [facility] V28) 07/02/2010 Microalbuminuria 03/09/2010 Hypertension 01/24/2006 Overview (08/29/2024): = Assessment & Plan (05/06/2025 1:46 PM EDT): Utilizing carvedilol 25 mg p.o. twice daily and furosemide as needed. Blood pressure is controlled. If needed would uptitrate Entresto in the future if patient blood pressure is elevated. Assessment & Plan (10/28/2024 3:19 PM EST): [...] Encounters Date Type Department Care Team Description 05/18/2025 1:00 PM EDT Office Visit Adult Medicine [address] [phone] Ayanna Bustillo MD Primary hypertension (Primary Dx); Type 2 diabetes mellitus with stage 3a chronic kidney disease, without long-term current use of insulin ([facility] V24, [facility] V28); Hypothyroidism due to acquired atrophy of thyroid; Chronic right-sided congestive heart failure ([facility] V24, [facility] V28); Moderate persistent asthma without complication; Other hyperlipidemia; Primary osteoarthritis of both knees 05/06/2025 1:10 PM EDT Office Visit [facility] [address] [facility] [address] [place] [address] Kota Franklin NP Chronic right-sided congestive heart failure ([facility] V24, [facility] V28) (Primary Dx); Hypertension, unspecified type; Hyperlipidemia, unspecified hyperlipidemia type 04/27/2025 1:30 PM EDT Ancillary Procedure [facility] - [facility] [address] [place] [address] Chronic right-sided congestive heart failure ([facility] V24, [facility] V28) 03/16/2025 Telephone Adult Medicine [address] [phone] Ayanna Bustillo MD from Last 3 Months Immunizations Name Administration [...] knee arthroscopy: slipped cap CARPAL TUNNEL RELEASE 2015 Right TONSILLECTOMY Medical History Medical History Date Comments Diabetes mellitus type 2 wit h neurological manifestations ([facility] V24, [facility] V28) 01/17/2015 ) Arthritis, degenerative 01/21/2015 Other specified personal his tory presenting hazards to health(V15.89) PRECANCEROUS CELL S OF CERVIX Asthma 06/07/2015 Inflammatory arthritis 09/29/2018 Urinary incontinence 06/06/2022 Type 2 diabetes mellitus wit h eye manifestations ([facility] V24, [facility] V28) 08/29/2024 Morbid obesity with BMI of 5 0.0-59.9, adult ([facility] V24, [facility] V28) 07/29/2024 Hypertension 01/24/2006 = Microalbuminuria 03/09/2010 Anxiety 07/03/2020 Longstanding, Xa nax (on controlled substance agreement) BREASTER (background diabetic ret inopathy) ([facility] V24, [facility] V28) 08/17/2013 = CHF (congestive heart failur e) ([facility] V24, [facility] V28) 10/23/2015 -Most recent echocardiogram in February 2024 showed [...] Cigarettes Q uit: 09/14/2000 Smokeless Tobacco: Never Tobacco Cessation:Counseling Given: Not Answered Alcohol Use Standard Drinks/Week Comments No 0 [...] for your loved ones. For example, child development consultant or elderly care for an older adult? [...] Sign Reading Time Taken Comments Blood Pressure 126/74 05/18/2025 12:45 PM EDT wrist/machine Pulse 74 05/18/2025 12:45 PM EDT Temperature 36 C (96.8 F) 05/18/2025 12:45 PM EDT Respiratory Rate 18 05/18/2025 12:4 5 PM EDT Oxygen Saturation 95% 05/18/2025 12: 45 PM EDT Inhaled Oxygen Concentration - - Weight 141 kg (311 lb 6.4 oz) 12:45 PM EDT Height 170.2 cm (5' 7 ) 05/18/2025 12:4 5 PM EDT Body Mass Index 48.77 05/18/2025 12:45 PM EDT Plan of Treatment Upcoming Encounters Date Type Department Care Team (Late st Contact Info) Description 06/23/2025 12:00 PM EDT Ancillary Procedure [facility] [address] [place] [address] 09/19/2025 1:15 PM EST Office Visit Adult Medicine [facility] [address] [place] [address] Sindhu Suazo PA [address] [place] [phone] Health Maintenance Due Date Last Done Comments Breast Cancer Screening 1958 Diabetes: Annual Foot Exam 1968 Diabetes: Annual Retina Eye Exam 1968 Zoster Vaccines (1 of 2) 1977 Pneumococcal Vaccine: 50+ Years (2 of 2 - PPSV23) 04/12/2016 02/16/2016 RSV Immunization Adult Patients (1 - Risk 60-74 years 1-dose series) 2018 Osteoporosis Screening (Bone Density Screening) 08/24/2022 COVID-19 Vaccine ( season) 2025 09/11/2022, 09/01/2021, 01/15/2021, Additional history exists Influenza Vaccine (#1) 2025 Diabetes: Blood Sugar Control Test (HGBA1C) 11/15/2025 05/18/2025, 11/24/2024, 09/02/2024, Additional history exists Falls Risk Assessment 01/04/2026 01/04/2025 Medicare Annual Wellness Visit 01/04/2026 01/04/2025 Social Influencers of Health Screening 01/04/2026 01/04/2025 Diabetes: Annual Urine Albumin-Creatinine Ratio (uACR) 05/18/2026 05/18/2025, 09/02/2024, 10/14/2023 Diabetes: Annual GFR (Glomerular Filtration Rate) 05/18/2026 05/18/2025, 11/24/2024, 09/02/2024, Additional history exists Hypertension/CHF/CAD Annual BMP Blood Test 05/18/2026 05/18/2025, 11/24/2024, 09/02/2024, Additional history exists Colorectal Cancer Screening: FIT-DNA (Cologuard) 07/23/2026 07/23/2023 Cholesterol Screening (Lipid Panel) 05/18/2030 05/18/2025, 04/26/2024, 04/26/2024 DTaP,Tdap,and Td Vaccines (4 - Td or Tdap) 07/23/2031 07/23/2021, 07/23/2021, 06/13/2008 Hepatitis C Screening Completed 12/22/2015 Colorectal Cancer Screening: Colonoscopy Discontinued 07/23/2023 Depression Screening Completed 01/04/2025, 04/26/20 24 HIB Vaccines Aged Out No longer eligi [...] Associated Diagnosis Comments COMPREHENSIVE METABOLIC PANEL Routine 05/18/2025 1:18 PM EDT Primary hypertension HEMOGLOBIN A1C Routine 05/18/2025 1:18 PM EDT Type 2 diabetes mellitus with stage 3a chronic kidney disease, without long-term current use of insulin ([facility]/HCC V24, CMS/HCC V28) LIPID PANEL WITH REFLEX TO DIRECT LDL Routine 05/18/2025 1:18 PM EDT Other hyperlipidemia MICROALBUMIN CREATININE URINE RATIO Routine 05/18/2025 1:18 PM EDT Type 2 diabetes mellitus with stage 3a chronic kidney disease, without long-term current use of insulin (CMS/HCC V24, CMS/HCC V28) TRANSTHORACIC ECHOCARDIOGRAM (TTE) COMPLETE W/ CONTRAST Routine 04/27/2025 2:32 PM EDT Chronic right-sided congestive heart failure (CMS/HCC V24, CMS/HCC V28) DEPRESSION SCREENING Routine 04/26/2024 COLONOSCOPY Routine 07/23/2023 HEPATITIS C SCREENING Routine 12/22/2015 from Last 3 Months or Most Recently Relevant to Health Maintenance Results * (ABNORMAL) Lipid panel with reflex to direct LDL (05/18/2025 1:18 PM EDT) Cholesterol 181 0 - 200 mg/dL LAB CHEMISTRY METHOD 05/18/2025 5:25 PM EDT [facility] Triglycerides 126 0 - 150 mg/dL LAB CHEMISTRY METHOD 05/18/2025 5:25 PM EDT [facility] HDL 55 >=40 mg/dL LAB CHEMISTRY METHOD 05/18/2025 5:25 PM EDT [facility] LDL Calculated 101(H) 0 - 100 mg/dL LAB CHEMISTRY METHOD 05/18/2025 5:25 PM EDT [facility] Comment:Estimated LDL Calcul ated using equation: Total cholesterol - HDL cholesterol - (Triglycerides/5) VLDL Cholesterol Maxwell 25.2 mg/dL LAB CHEMISTRY METHOD 05/18/2025 5:25 PM EDT [facility] Non HDL Chol. (LDL+VLDL) 126 <145 mg/dL LAB CHEMISTRY METHOD 05/18/2025 5:25 PM EDT [facility] Chol/HDL Ratio 3.3 0.0 - 4.4 LAB CHEMISTRY METHOD 05/18/2025 5:25 PM EDT [facility] Blood Venous blood specimen / Unknown Venipuncture / Unknown 05/18/2025 1:18 PM EDT 05/18/2025 1:18 PM EDT us Ayanna Bustillo MD LAB BLOOD ORDERABLES Final Resul t [facility] [address] [place] [address], * (ABNORMAL) Microalbumin creatinine urine ratio (05/18/2025 1:18 PM EDT) Creatinine, Urine 24.0 mg/dL LAB CHEMISTRY METHOD 05/18/2025 3:58 PM EDT [facility] Microalb, Ur 64.6(H) 0.0 - 29.0 mg/L LAB CHEMISTRY METHOD 05/18/2025 3:58 PM EDT [facility] Microalb/Crea t Ratio 269(H) <30 mg/g creat LAB CHEMISTRY METHOD 05/18/2025 3:58 PM EDT [facility] Urine Urine specimen obtained by clean catch procedure / Unknown Non-blood Collection / Unknown 05/18/2025 1:18 PM EDT 05/18/2025 1:18 PM EDT us Ayanna Bustillo MD LAB URINE ORDERABLES Final Resul t Performing Organization Address [facility]/ZIP Co de Phone Number [facility] [address] [place] [address], [place] [phone] * (ABNORMAL) Hemoglobin A1c (05/18/2025 1:18 PM EDT) Hemoglobin A1C 6.6(H) <6.5 % LAB CHEMISTRY METHOD 05/18/2025 8:30 PM EDT [facility] Mean Bld Glu Estim. 143 mg/dL LAB CHEMISTRY METHOD 05/18/2025 8:30 PM EDT [facility] Blood Venous blood specimen / Unknown Venipuncture / Unknown 05/18/2025 1:18 PM EDT 05/18/2025 1:18 PM EDT us Ayanna Bustillo MD LAB BLOOD ORDERABLES Final Resul t Performing Organization Address [facility]/ZIP Co de Phone Number [facility] [address] [place] [address], [place] [phone] * (ABNORMAL) Comprehensive metabolic panel (05/18/2025 1:18 PM EDT) Pathologist [facility] Sodium 137 133 - 145 mmol/L LAB CHEMISTRY METHOD 05/18/2025 5:25 PM EDT [facility] Potassium 5.1 3.5 - 5.5 mmol/L LAB CHEMISTRY METHOD 05/18/2025 5:25 PM EDT [facility] Chloride 109 96 - 110 mmol/L LAB CHEMISTRY METHOD 05/18/2025 5:25 PM EDT [facility] CO2 24 21 - 32 mmol/L LAB CHEMISTRY METHOD 05/18/2025 5:25 PM EDT [facility] Anion Gap 4 3 - 11 LAB CHEMISTRY METHOD 05/18/2025 5:25 PM [facility] Glucose 109(H) 70 - 100 mg/dL LAB CHEMISTRY METHOD 05/18/2025 5:25 PM [facility] BUN 20 5 - 25 mg/dL LAB CHEMISTRY METHOD 05/18/2025 5:25 PM [facility] Creatinine 0.81 0.50 - 1.10 mg/dL LAB CHEMISTRY METHOD 05/18/2025 5:25 PM [facility] eGFR 80 >=60 mL/min/1. 73m2 LAB CHEMISTRY METHOD 05/18/2025 5:25 PM [facility] Comment:Calculation based on the Chronic Kidney Disease Epidemiology Collaboration (CKD-EPI) equation refit without adjustment for race. BUN/Creatinine Ratio 24.7 LAB CHEMISTRY METHOD 05/18/2025 5:25 PM [facility] Calcium 10.0 8.5 - 10.5 mg/dL LAB CHEMISTRY METHOD 05/18/2025 5:25 PM [facility] AST (SGOT) 24 10 - 42 unit/L LAB CHEMISTRY METHOD 05/18/2025 5:25 PM [facility] ALT (SGPT) 23 10 - 60 unit/L LAB CHEMISTRY METHOD 05/18/2025 5:25 PM [facility] Alkaline Phosphatase 82 42 - 121 unit/L LAB CHEMISTRY METHOD 05/18/2025 5:25 PM [facility] Total Protein 7.5 6.0 - 8.0 g/dL LAB CHEMISTRY METHOD 05/18/2025 5:25 PM [facility] Albumin 4.1 3.2 - 5.0 g/dL LAB CHEMISTRY METHOD 05/18/2025 5:25 PM [facility] Total Bilirubin 0.4 0.0 - 1.4 mg/dL LAB CHEMISTRY METHOD 05/18/2025 5:25 PM [facility] Blood Venous blood specimen / Unknown Venipuncture / Unknown 05/18/2025 1:18 PM EDT 05/18/2025 1:18 PM EDT us Ayanna Bustillo MD LAB BLOOD ORDERABLES Final Resul t [facility] [address] [place] [address], [place] [phone] * (ABNORMAL) TRANSTHORACIC ECHOCARDIOGRAM (TTE) COMPLETE W/ CONTRAST (04/27/2025 2:32 PM EDT) Left Atrium Minor Malden 5.1 cm CV PACS Left Atrium Major Malden 5.5 cm CV PACS LA Area Sys (A2C) 21 cm2 CV PACS LA Area Sys (A4C) 19 cm2 CV PACS LA Volume (BP) 61 mL CV PACS RA Area 12.8 cm2 CV PACS RA 2D Volume 28 mL CV PACS AV Mean Gradient 4 mmHg CV PACS Ao VTI 26.9 cm CV PACS AV Peak Constantine 1.3 m/s CV PACS AV Peak Gradient 7 mmHg CV PACS AV Area Continuity Equation 1.6 cm2 CV PACS AV Area Peak Velocity 1.7 cm2 CV PACS Aortic Sinus Valsalva 3.4 cm CV PACS Ascending Aorta 3.3 cm CV PACS IVSD 1.0(A) 0.6 - 0.9 cm CV PACS LVIDD 4.9 3.8 - 5.2 cm CV PACS LVIDS 3.5 2.2 - 3.5 cm CV PACS LVOT Diameter 2.0 cm CV PACS LVOT Mean Constantine 0.5 m/s CV PACS LVOT Mean Grad 1 mmHg CV PACS LVOT Peak VTI 13.4 cm CV PACS LVOT Peak Constantine 0.7 m/s CV PACS LVOT Peak Gradient 2 mmHg CV PACS LVPWD 1.0(A) 0.6 - 0.9 cm CV PACS MV E' Tissue Velocity Lateral 6 cm/s CV PACS MV E' Tissue Velocity Septal 3 cm/s CV PACS LVOT Area 3.1 cm2 CV PACS LVOT Stroke Volume 42 mL CV PACS MV Deceleration Sunflower 2.7 m/s2 CV PACS E Wave Deceleration Time 201 119 - 242 ms CV PACS MV PHT 58 ms CV PACS MV Peak A Constantine 1.00 m/s CV PACS MV Peak E Constantine 0.50 m/s CV PACS MV Area PHT 3.7 cm2 CV PACS PV Acceleration Time 116 ms CV PACS PV Acceleration Time 116 ms CV PACS RV Diastolic Basal Dimension 3.3 2.5 - 4.1 cm CV PACS RV S' 11 cm/s CV PACS TAPSE 18 mm CV PACS E/E' Ratio Septal 17 CV PACS E/E' Ratio Averaged 13 CV PACS LVOT Stroke Index 17 mL/m2 CV PACS Relative Wall Thickness ratio 0.41 0.22 - 0.42 CV PACS LVOT:AV VTI Index 0.50 CV PACS FS 29 % CV PACS LV Mass 2D 176(A) 66 - 150 g CV PACS Ascending Aorta Index 1.36 cm/m2 CV PACS LVOT flow 157 mL/s CV PACS RA 2D Volume Index 12 15 - 27 mL/m2 CV PACS NICOLE Index (VTI) 0.64 cm2/m2 CV PACS NICOLE Index (Pk Constantine) 0.70 cm2/m2 CV PACS LVIDD Index 2.02 cm/m2 CV PACS LVIDS Index 1.44 cm/m2 CV PACS AV Velocity Ratio 0.54 CV PACS E/A Ratio 0.5(A) 0.8 - 2.0 CV PACS E/E' Ratio Lateral 8 CV PACS LA Volume Index (BP) 25 mL/m2 CV PACS LV Mass Index 2D 72 44 - 88 g/m2 CV PACS BSA 2.57 m2 CV PACS Ejection Fraction (BP) 55 % CV PACS Ejection Fraction (A4C) 53 % CV PACS Ejection Fraction (A2C) 61 % CV PACS LV Diastolic Volume (BP) 113(A) 46 - 106 mL CV PACS LV Diastolic Volume Index (BP) 47(A) 29 - 61 mL/m2 CV PACS LV Systolic Volume (BP) 50(A) 14 - 42 mL CV PACS LV Systolic Volume Index (BP) 21(A) 8 - 24 mL/m2 CV PACS LV EDV (A4C) 101 mL CV PACS LV EDV Index (A4C) 42 mL/m2 CV PACS LV ESV (A4C) 47 mL CV PACS LV ESV Index (A4C) 19 mL/m2 CV PACS LV EDV (A2C) 124 mL CV PACS LV EDV Index (A2C) 51 mL/m2 CV PACS LV ESV (A2C) 49 mL CV PACS LV ESV Index (A2C) 20 mL/m2 CV PACS LA Volume (A-L) 51 mL CV PACS LA Volume Index (A-L) 21 mL/m2 CV PACS RV Free Wall Peak S' 11 cm/s CV PACS RA Major Malden 4.9 cm CV PACS RA Major Malden Index 2.0(A) 2.2 - 2.8 cm/m2 CV PACS AV Area 2D 1.7 cm2 CV PACS NICOLE Index (2D) 0.70 cm2/m2 CV PACS LV EF MOD 2C 61 % CV PACS LV EF 4C A-L 53 % CV PACS LV EDV 4C A-L 108 mL CV PACS LV Length Sys (A4C) 6.4 cm CV PACS LV Length Anaya (A4C) 8.3 cm CV PACS AV Area Index 0.6 CV PACS Left Ventricular Stroke Volume by 2-D Biplane-MOD 62 mL CV PACS Est. RA Pressure 3 mmHg CV PACS Anatomical Region Laterality Modality Ultrasound Narrative 05/09/2025 3:18 PM EDT Left ventricle cavity size is normal. There is mild, concentric left ventricular hypertrophy. There is normal left ventricular regional wall motion. Left ventricular systolic function is low normal with an ejection fraction of 50-55%. Calculated LV ejection fraction by Pope's biplane method is 55%. Right ventricle cavity is grossly normal in size though it was not well-visualized. Right ventricular systolic function is normal. There is no hemodynamically significant valve disease. Compared with prior echocardiogram from 03/11/2024, findings are unchanged. Left Ventricle Left ventricle cavity size is normal. There is mild concentric hypertrophy. Systolic function is low normal with an ejection fraction of 50-55%. There are no regional LV wall motion abnormalities. Indeterminate diastolic function. Left atrial pressure is inconclusive. Right Ventricle Right ventricle was not well visualized. However, grossly appears normal in size. Systolic function is normal. Left Atrium Left atrium cavity size is normal. Right Atrium Right atrium cavity is normal. IVC/SVC Inferior vena cava structure is normal. RA pressures is estimated to be 3 mmHg (IVC diameter <21 mm and decreases >50% during inspiration). Mitral Valve The leaflets are thickened. There is mild annular calcification. There is trace regurgitation. There is no evidence of mitral valve stenosis. Tricuspid Valve The leaflets exhibit normal excursion. There is trace regurgitation. There is no evidence of tricuspid valve stenosis. Cannot assess RVSP. Aortic Valve The aortic valve is trileaflet. The leaflets are thickened. There is no regurgitation or stenosis. Pulmonic Valve Pulmonic valve structure is normal. There is no regurgitation or stenosis. Ascending Aorta The aorta appears normal in size. Pericardium There is no pericardial effusion. Study Details Overall the study quality was technically difficult. Definity contrast was given to enhance imaging. Study was difficult due to: poor endocardial visualization, patient body habitus and poor acoustic windows. Result [facility] Kota Franklin NP CV ECHO PROCEDURES Final Result * Depression Screening (04/26/2024) [place] [facility] Depression Screening abstracted Result [facility] Provider HEALTH MAINTENANCE Final Result * Colonoscopy (07/23/2023) [facility] Colonoscopy abstracted,no interpretation Anatomical Region Laterality Modality Other Result [facility] Provider HEALTH MAINTENANCE Final Result * Hepatitis C Screening (12/22/2015) [facility] Hepatitis C Screening abstracted Result [facility] Provider HEALTH MAINTENANCE Final Result from Last 3 Months or Most Recently Relevant to Health Maintenance Insurance MEDICAID - [place] [employer] MEDICARE Care Teams Cryptography Teacher Relationship Specialty Start Date End Date Ayanna Bustillo MD [address] [place] [phone] PCP - General Internal Medicine 01/25/21
[2025-06-10 16:09] LABS: MANUAL DIFF FLAG NO
[2025-06-10 16:11] LABS: Hematocrit 36.4 % (37.0-47.0); Hemoglobin 11.3 g/dl (12.0-16.0); Imm Gran Abs Auto 0.08 X10*3/uL (0.00-0.03); Imm Gran Pct Auto 1.0 % (0.0-0.4); Lymphocytes Absolute Auto 1.6 X10*3/uL (1.2-4.9); Mean Corpuscular HGB Conc 31.0 g/dl (31.0-35.0); Mean Corpuscular Hemoglobin 25.7 pg (27.0-33.0); Mean Corpuscular Volume 82.9 fL (80.0-98.0); NRBC Abs Auto 0.000 X10*3/uL (0.0-0.012); NRBC Pct Auto 0.0 /100WBC (0.0-0.2); Platelet Count 167 X10*3/uL (160-400); Red Blood Count 4.39 X10*6/uL (4.20-5.50); White Blood Count 7.9 X10*3/uL (4.8-10.8)
[2025-06-10 16:27] LABS: Alanine Aminotransferase 16 U/L (0-31); Albumin Level 4.3 g/dL (3.5-5.0); Alkaline Phosphatase 76 U/L (39-117); Anion Gap 14 (12-20); Aspartate Amino Transferase 28 U/L (5-31); Blood Urea Nitrogen 15 mg/dL (9-16); Calcium 9.6 mg/dL (8.4-10.2); Carbon Dioxide 25 mmol/L (22-29); Chloride 107 mmol/L (96-108); Estimated Glomerular Filt Rate > 60; Potassium 4.3 mmol/L (3.3-5.1); Sodium 142 mmol/L (135-145); Total Protein 7.5 g/dL (6.5-8.0)
== END 2025-06-10 13:01 | disposition home or self-care (01) ==
LOC: HO.HMGCLDS 13:00
PROVIDERS: PCP Internal Medicine; Visit Provider Student in an Organized Health Care Education/Training Program
DX: Z79.899 Other long term (current) drug therapy (principal)
CPT/HCPCS: 36415; 80053; 85025; 85652; 86140